=== PATIENT | female | born 1985 | race Caucasian/White ===

== ENCOUNTER → 2025-03-21 09:36 | Outpatient (REF) | payer BC, SELFPAY | LOC: WDC 09:36 | PROVIDERS: ATTENDING PHYSICIAN Obstetrics & Gynecology Gynecology; FAMILY PHYSICIAN Family Medicine | DX: N63.0 Unspecified lump in unspecified breast (principal); N63.22 Unspecified lump in the left breast, upper inner quadrant | CPT/HCPCS: 76642; 77062; 77066 ==

== ENCOUNTER 2025-05-16 07:28 | Inpatient (IN) | payer BC, SELFPAY ==
[2025-05-11 14:56] VITALS: BP 168/97
[2025-05-11 15:21] LABS: Hematocrit 38.9 % (37.0-47.0); Hemoglobin 12.9 g/dL (12.0-16.0); Mean Corp Hgb Conc. 33.2 g/dL (33.0-37.0); Mean Corpuscular Volume 83.7 fL (81.0-99.0); Nucleated Red Blood Cells % 0 %; Platelet Count 289 10^3/uL (130-400); Red Cell Dist. Width 13.2 % (11.5-14.5)
[2025-05-11 15:42] LABS: HCG, Serum Qualitative Screen Negative
[2025-05-11 15:45] LABS: ALT (SGPT) 15 U/L (0-35); AST (SGOT) 17 U/L (14-36); Albumin 3.8 g/dl (3.5-5.0); Alkaline Phosphatase 60 U/L (38-126); Blood Urea Nitrogen 15 mg/dl (7-17); Calcium 8.7 mg/dl (8.4-10.2); Carbon Dioxide 25 mmol/L (22-30); Chloride 107 mmol/L (98-107); Glucose 96 mg/dl (70-99); Potassium 4.0 mmol/L (3.5-5.1); Sodium 138 mmol/L (135-145); Total Protein 6.9 g/dl (6.3-8.2); eGFR > 60.00
[2025-05-11 18:37] VITALS: BMI 36.4
--- NOTE | 2025-05-11 19:45 | ED.GENMED ---
History of Present Illness
<Artur Cruz DO - Last Filed: 05/11/25 19:53>
General
Chief Complaint: Skin Problem
Time Seen by Provider: 05/11/25 18:02
<Milagros Hager NP - Last Filed: 05/11/25 21:49>
General
Source: patient
Exam Limitations: none
Nursing documentation reviewed up to this point in time: agreed with
History of Present Illness
History of Present Illness:
Patient to ED for eval of discoloration to left 5th toe. History of Type II DM, BLE neuropathy. States she developed a blister to left 5th toe but did not see or feel it until foot became red. She was seen elswhere and placed on Keflex QID 4 days
ago. 2 days ago she was seen at [facility] for same issue and given a dose of IV antibiotics, told to contineu Keflex. She reports blue discoloration of toe today. Came to ED for eval.
Past History
<Milagros Hager NP - Last Filed: 05/11/25 21:49>
Past History
ED Past Medical History: HTN, Hypercholesterolemia and NIDDM
Review of Systems
<Milagros Hager NP - Last Filed: 05/11/25 21:49>
Review of Systems
Allergies reviewed?: Yes
All Other Systems: ROS reviewed and negative except as documented in HPI and ROS
Constitutional: Reports no symptoms
EENT: Reports no symptoms
Respiratory: Reports no symptoms
Cardiac: Reports no symptoms
ABD/GI: Reports no symptoms
: Reports no symptoms
Musculoskeletal: Reports no symptoms
Skin: Reports other (blue discoloraton left 5th toe, swelling)
Neurological: Reports other (Neuropathy BLE)
Psychiatric: Reports no symptoms
Phy Exam
<Milagros Hager NP - Last Filed: 05/11/25 21:49>
General Physical Exam
General Presentation: well appearing and mild distress
General age: appears stated age
General Skin: warm and dry
General Habitus: normal
General Mental: alert
Cardiovascular Exam
Cardiovascular Exam: regular rate/rhythm
Pulmonary Exam
Pulmonary Exam: no respiratory distress
Musculoskeletal Exam
Musculoskeletal Exam: full ROM and other (BLE neuropathy. Left DP/PT pulses by doppler)
Skin Exam
Skin Exam: warm/dry and other (blue discoloration left 5th toe, swelling. )
Psychiatric Exam
Psychiatric Exam: normal mood/affect
Course
<Artur Cruz, DO - Last Filed: 05/11/25 19:53>
Orders/Labs/Results
Orders:
Orders
05/11/25 15:01
Test Result ONCE
05/11/25 15:13
CMP [Comprehensive Metabolic Panel] Urgent
Complete Blood Count/With Diff Urgent
HCG, Serum Qualitative Screen Urgent
05/11/25 18:19
Toes 2 Views, Left CR [CR Toe(s) Min 2 Vw Left] Urgent
Comment:
Reason For Exam: cellulitis 5th toe
05/11/25 21:01
Lactic Acid Urgent
Blood Culture Urgent
VLAD Source: Blood/Venous
Specimen Description:
Blood Culture Urgent
VLAD Source: Blood/Venous
Specimen Description:
Date Specimen was Collected: 05/11/25
Time Specimen was Collected: 21:20
05/11/25 21:32
Admit/Transfer Patient As Directed
Co-Sign Provider:
Level of Care: Observation services
Assign to:: Medical/Surgical
Physician / Group: Colette Almanza
Diagnosis: left 5th toe cellulitis and left 5th toe cyanosis
PRN Pain Medication Management As Directed
May give lesser potent ordered pain med per pt: Yes
preference::
Protocol:: Medication orders for pain may be administered in a
manner that supports deferring to patient preference
when the pt is:
- Requesting an ordered lesser potent pain medication.
Least to most potent pain medications are defined
as: acetaminophen < NSAID < tramadol < opioids
(morphine, oxycodone, hydromorphone).
- Requesting a lesser dose of the same medication IF
ORDERED.
- Requesting a less intrusive route of administration
if both routes are prescribed by the provider (PO <
IV).
05/11/25 21:34
Code Status As Directed
Resuscitation Status: Full Code
Abnormal Lab Results
05/11/25
15:13
Abs Immat Gran (auto) 0.1 H 10^3/uL
(0-0.05)
Absolute Neuts (auto) 7.6 H 10^3/uL
(1.4-6.5)
Absolute Monos (auto) 0.8 H 10^3/uL
(0.1-0.6)
05/11/25 15:13
05/11/25 15:13
Vital Signs
Initial and Last Documented VS:
Initial Vital Signs
Temp Pulse Resp BP Pulse Ox
98.2 F 89 18 168/97 98
05/11/25 14:56 05/11/25 14:56 05/11/25 14:56 05/11/25 14:56 05/11/25 14:56
Last Documented Vital Signs
Temp Pulse Resp BP Pulse Ox
98.2 F 87 20 168/97 99
05/11/25 14:56 05/11/25 21:05 05/11/25 21:05 05/11/25 14:56 05/11/25 21:01
<Milagros Hager NP - Last Filed: 05/11/25 21:49>
Orders/Labs/Results
Orders:
Orders
05/11/25 15:01
Test Result ONCE
05/11/25 15:13
CMP [Comprehensive Metabolic Panel] Urgent
Complete Blood Count/With Diff Urgent
HCG, Serum Qualitative Screen Urgent
05/11/25 18:19
Toes 2 Views, Left CR [CR Toe(s) Min 2 Vw Left] Urgent
Comment:
Reason For Exam: cellulitis 5th toe
05/11/25 21:01
Lactic Acid Urgent
Blood Culture Urgent
VLAD Source: Blood/Venous
Specimen Description:
Blood Culture Urgent
VLAD Source: Blood/Venous
Specimen Description:
Date Specimen was Collected: 05/11/25
Time Specimen was Collected: 21:20
05/11/25 21:32
Admit/Transfer Patient As Directed
Co-Sign Provider:
Level of Care: Observation services
Assign to:: Medical/Surgical
Physician / Group: Colette Almanza
Diagnosis: left 5th toe cellulitis and left 5th toe cyanosis
PRN Pain Medication Management As Directed
May give lesser potent ordered pain med per pt: Yes
preference::
Protocol:: Medication orders for pain may be administered in a
manner that supports deferring to patient preference
when the pt is:
- Requesting an ordered lesser potent pain medication.
Least to most potent pain medications are defined
as: acetaminophen < NSAID < tramadol < opioids
(morphine, oxycodone, hydromorphone).
- Requesting a lesser dose of the same medication IF
ORDERED.
- Requesting a less intrusive route of administration
if both routes are prescribed by the provider (PO <
IV).
05/11/25 21:34
Code Status As Directed
Resuscitation Status: Full Code
Abnormal Lab Results
05/11/25
15:13
Abs Immat Gran (auto) 0.1 H 10^3/uL
(0-0.05)
Absolute Neuts (auto) 7.6 H 10^3/uL
(1.4-6.5)
Absolute Monos (auto) 0.8 H 10^3/uL
(0.1-0.6)
05/11/25 15:13
05/11/25 15:13
Vital Signs
Initial and Last Documented VS:
Initial Vital Signs
Temp Pulse Resp BP Pulse Ox
98.2 F 89 18 168/97 98
05/11/25 14:56 05/11/25 14:56 05/11/25 14:56 05/11/25 14:56 05/11/25 14:56
Last Documented Vital Signs
Temp Pulse Resp BP Pulse Ox
98.2 F 87 20 168/97 99
05/11/25 14:56 05/11/25 21:05 05/11/25 21:05 05/11/25 14:56 05/11/25 21:01
<Artur Cruz DO - Last Filed: 05/11/25 19:53>
*Pulse Oximetry
SaO2: 100
Oxygen Mode of Delivery: Room air
<Milagros Hager NP - Last Filed: 05/11/25 21:49>
*Radiology
Radiology exam reviewed: radiology read reviewed
*Pulse Oximetry
Patient hypoxic: no
*Critical Care Note
Total Time (30-74mins, 75-104mins- exclusive of procedures): Not Applicable
<Milagros Hager NP - Last Filed: 05/11/25 21:49>
Update Note
Update Note:
Patient to ED with discoloration to left 5th toe concerning for arterial compromise. Dr. Figueroa consulted via tiger text. Requests admission, IV antibiotics,, noninvasive arterial studies in AM. Discussed plan with patient. WIll admit to
hospitalist service.
ED Attending Note
<Artur Cruz, DO - Last Filed: 05/11/25 19:53>
ED Attending Note
Patient seen and examined by attending physician: Yes
I performed the substantive portion of visit, reviewed & personally made and approve the management plan that is documented in note by myself or PAULA.: Yes
ED Attending Note:
I have seen and evaluated the patient with a [id number] encounter. I have spoken to the advance practicer provider and involved in the medical history, the physical exam, medical decision making.
Evaluation and management service: agree unless noted differently below.
Results interpretation: agree unless noted differently below.
Focused HPI: 39-year-old female presenting for evaluation of discolored left pinky toe. She was recently admitted for IV antibiotics given a concern for diabetic ulcer and cellulitis. Since being on the antibiotics, the swelling and erythema have
improved drastically. Patient does acknowledge that she has poor circulation in both feet and poor sensation in both feet but has not been evaluated by a fire protection equipment technician or vascular surgeon
Physical exam: Thready pulses in both DP's. Cap refill approximately 3 seconds for both feet. Left pinky toe has purpleish discoloration to the distal aspect but is nontender. No crepitus. No surrounding cellulitis
Medical Decision Making: Given the discoloration, will touch base with vascular surgeon. Patient acknowledges that she needs to see a fire protection equipment technician. We discussed the possibilities of osteomyelitis versus micro clot versus dry gangrene versus a simple
bruise.
-
Portions of this chart may have been created with voice recognition software.� Occasional wrong word or��sound alike� substitutions may have occurred due to the inherent limitations of voice recognition software.
Discharge Plan
Departure
Patient Disposition: Admit
Date of Disposition: 05/11/25
Time of Disposition: 20:39
Presentation/result/management discussed w/ accepting MD/DO: Hospitalist
Patient with high blood pressure during this ER visit?: No
Condition: Fair
Covid-19: Not Applicable
Discharge Problem:
Toe cyanosis, Cellulitis of fifth toe
Prescriptions:
No Action
atorvastatin 40 mg Tablet
40 mg PO DAILY
ascorbic acid (vitamin C) [Vitamin C] 1,000 mg Tablet
1,000 mg PO DAILY
metoprolol succinate 50 mg Tablet Extended Release 24 Hr
50 mg PO BID
cephalexin 500 mg capsule
500 mg PO QID
Patient Comments:
05/11/2025, filled on 05/09/2025 and instructed to take 1 capsule QID for 7 days.
metformin 1,000 mg Tablet
1,000 mg PO BID
Ex-Lax 90 mg Tablet,Chewable
90 mg PO ONCE PRN (Reason: constipation)
mupirocin 2 % ointment
1 applic TOPICAL BID
losartan 100 mg tablet
100 mg PO DAILY
bupropion HCl 150 mg Tablet Extended Release 24 Hr
150 mg PO DAILY
Jardiance 25 mg Tablet
25 mg PO DAILY
Bariatric Multivitamins 45 mg iron- 800 mcg-120 mcg Capsule
1 cap PO DAILY
Mounjaro 7.5 mg/0.5 mL pen injector
7.5 mg SC MO
Referrals:
Rajan Epstein DO [Family Provider, Family Practice]
Interventions
Interventions:
*Risk Screen - Suicide Last Done: 05/11/25 14:56
*General Assessment Last Done: 05/11/25 14:56
*Neglect/Abuse Screening Last Done: 05/11/25 18:38
*ED- Fall Risk Assessment Last Done: 05/11/25 18:38
*ED COVID-19 Vaccine History Last Done: 05/11/25 18:38
ED-Skin Assessment Last Done: 05/11/25 18:38
Discharge Date and Time
Print Language: VIETNAMESE
--- NOTE | 2025-05-11 20:49 | HPS.HSE ---
Family Physician
-
Family Physician: Rajan Epstein
Chief Complaint
-
discoloration of left 5th toe
History of Present Illness
Patient is a 39-year-old female with past medical history significant for hypertension, hyperlipidemia, DM II and depression/anxiety who presented to [facility] ED for evaluation of discoloration of left 5th toe. Patient reports a blister started on
outside of toe approximately 2 weeks ago, it appeared to be healing when Friday she noticed erythema and edema to toe that traveled up foot to ankle. Patient reports seeing primary doctor on Friday who started her on oral antibiotics, by Friday
evening the erythema traveled nearly to knee and she went to ED ([facility] [place]) for evaluation. They administered 1 dose of IV antibiotics and discharged her home to continue Keflex QID. Patient notes she observed a dark discoloration on the
underside of her toe today and came for further evaluation. Denies any fever, chills, cough, shortness of breath, chest pain, nausea, vomting or change in bowel or bladder.
Medical History
Past Medical History
Past Medical History: Reports Other
Additional Past Medical History:
Depression
Diabetes mellitus, type 2
Neuropathy
Hypertension
Hypercholesterolemia
Past Surgical History: Reports Other
Additional Past Surgical History:
Gastric Sleeve Surgery- 10/2023
wisdom teeth extraction
Social History
Tobacco: Non-smoker
Alcohol: Occasional (rare)
Drug: None
Living: With Roomate
Employment: Employed
Family History
Family History: Adopted
Allergies / Home Medications
Allergies reflects when Allergies were last updated in [employer].
Home Medications with original date entered in [employer]
Allergy/Medication List:
Allergies
Allergy/AdvReac Type Severity Reaction Status Date / Time
lisinopril Allergy cough Verified 05/11/25 14:57
Home Medications
ascorbic acid (vitamin C) 1,000 mg tablet (Vitamin C) 1,000 mg PO DAILY 05/11/25
atorvastatin 40 mg tablet 40 mg PO DAILY 05/11/25
bupropion HCl 150 mg 24 hr tablet, extended release 150 mg PO DAILY 05/11/25
cephalexin 500 mg capsule 500 mg PO QID 05/11/25
empagliflozin 25 mg tablet (Jardiance) 25 mg PO DAILY 05/11/25
losartan 100 mg tablet 100 mg PO DAILY 05/11/25
metformin 1,000 mg tablet 1,000 mg PO BID 05/11/25
metoprolol succinate 50 mg tablet,extended release 24 hr 50 mg PO BID 05/11/25
[id number]-[id number]-qjla 45 mg-folic acid 800 mcg-vit K 120 mcg capsule (Bariatric Multivitamins) 1 cap PO DAILY 05/11/25
mupirocin 2 % topical ointment 1 applic topical BID apply to L pinky toe 05/11/25
phenolphthalein, yellow 90 mg chewable tablet 90 mg PO ONCE PRN constipation 05/11/25
tirzepatide 7.5 mg/0.5 mL subcutaneous pen injector (Mounjaro) 7.5 mg SC MO 05/11/25
Review of Systems
-
History Source: Patient
Constitutional: Reports No Symptoms
EENT: Reports No Symptoms
Respiratory: Reports No Symptoms
Cardiac: Reports No Symptoms
Abdomen/GI: Reports No Symptoms
: Reports No Symptoms
Musculoskeletal: Reports Other (left 5th toe dark decolorization )
Skin: Reports No Symptoms
Neurological: Reports No Symptoms
Endocrine: Reports No Symptoms
Hematologic/Lymphatic: Reports No Symptoms
Psych: Reports No Symptoms
Physical Exam
Vital Signs
Vital Signs
Temp Pulse Resp BP Pulse Ox
98.2 F 88 16 168/97 100
05/11/25 14:56 05/11/25 18:37 05/11/25 18:37 05/11/25 14:56 05/11/25 19:45
Physical Exam
General: Well Developed, Well Nourished, No Apparent Distress, Comfortable and Conversant
HEENT: NormoCephalic, Moist mucous membranes and Atraumatic
Respiratory: Clear and Non Labored Respirations
Cardiac: S1/S2 and Regular Rhythm
GI: Soft, Non Tender, Non Distended and Normal Bowel Sounds
Rectal: Deferred by Provider
Musculoskeletal: No Clubbing, No Cyanosis, Edema, Left Lower Extremity (edema noted to left 5th digit and left foot ) and Other (poor palpable pedal pulses )
Skin: Warm, IV/Catheter Site and Other (left 5th digit wound appears to be healing )
Neuro: Awake, AO x 3 and Nonfocal/grossly intact
Psych: Calm and Intact Judgment/Insight
Laboratory Results
-
05/11/25 15:13
05/11/25 15:13
Laboratory Results
Total Bilirubin 0.9 mg/dl (0.2-1.3) 05/11/25 15:13
AST 17 U/L (14-36) 05/11/25 15:13
ALT 15 U/L (0-35) 05/11/25 15:13
Alkaline Phosphatase 60 U/L (38-126) 05/11/25 15:13
Data Reviewed
-
Diagnostic Radiology: Report Reviewed by me (Lt foot 5th digit x-ray: Soft tissue swelling about the fifth digit may reflect cellulitis. No convincing radiographic evidence for active osteomyelitis. MRI would be of greater sensitivity. No acute
fracture or dislocation. Visualized joints are intact. Scattered vascular calcifications.)
Lab Data: Labs Reviewed by me
Impression/Plan
-
IMPRESSION/PLAN:
#left 5th digit cyanosis
#left 5th digit cellulitis
Lt foot 5th digit x-ray: Soft tissue swelling about the fifth digit may reflect cellulitis. No convincing radiographic evidence for active osteomyelitis. MRI would be of greater sensitivity.
No acute fracture or dislocation. Visualized joints are intact. Scattered vascular calcifications.
- Admit to telemetry
- Consult Vascular
- non-invasive arterial studies in AM
- continue antibiotics, change Keflex to IV cefazolin
#hypertension
- continue losartan and metoprolol
#hyperlipidemia
- continue atorvastatin
#DM II
- AccuCheck AC & HS
- SSI
- hold Jardiance and metformin
- continue Mounjaro out patient
#depression/anxiety
- continue bupropion
Code status: full code
DVT prophylaxis: Lovenox sq
--- NOTE | 2025-05-11 20:49 | W.PN.UPDATE ---
Update Note
Progress Note Update
This is an addendum to H&P written by RECLAMATION ENGINEER Marla Ley
I saw and examined the patient.
The RECLAMATION ENGINEER's note was reviewed and I agree with the note.
Comment:
Ms. Triny Mcclure is a 39 yo woman with hx DM II, bilateral lower extremity neuropathy, recent treatment left 5th toe cellulitis started on Keflex, presents to the ER with blue discoloration of toe today.
Triage VS: T 98.2, P 89, RR 18, BP 168/97, SpO2 98%
On exam patient is awake, alert, in no distress. Cellulitis resolving from marked borders, no significant redness except at 5th digit where plantar aspect has darkened blue/purple appearance.
LABS: WBC 10.8, HG 12.9, PLT 239, Na 138, K+ 4.0, Cl 107, CO2 25, BUN 15, Cr 0.9, Glucose 96, CA 8.7, T. Bili 0.9, AST 17, ALT 15, Alk Phos 60, HCG negative
Toe X-Ray
IMPRESSION:
Soft tissue swelling about the fifth digit may reflect cellulitis. No convincing radiographic evidence for active osteomyelitis. MRI would be of greater sensitivity.
No acute fracture or dislocation. Visualized joints are intact. Scattered vascular calcifications.
Left fifth toe/LLE cellulitis with evidence of cyanosis 5th digit
-admit to med/surg
-Vascular surgery aware of admission
-Arterial US tomorrow
-IV Cefazolin while in-house (infection was improving on Oral Keflex at home)
DM II
-hold RN ANESTHESIOLOGY Metformin
Essential HTN
-RN ANESTHESIOLOGY Losartan, Metoprolol
HLD - RN ANESTHESIOLOGY Atorvastatin
Bilateral Lower extremity neuropathy
Obesity due to excess calories
DVT PPx
FULL CODE
[2025-05-11 22:00] VITALS: BP 146/93
[2025-05-11 22:54] LABS: Glucose - Point of Care 117 mg/dl (70-99)
[2025-05-11] MEDS: ANCEF 5 IV (23:13)
[2025-05-11] MEDS: FLUSH (NSS) 1 FLUSH IV (23:14)
[2025-05-11 23:17] VITALS: BP 134/94
[2025-05-12 05:58] LABS: Blood Urea Nitrogen 17 mg/dl (7-17); Calcium 8.5 mg/dl (8.4-10.2); Carbon Dioxide 23 mmol/L (22-30); Chloride 108 mmol/L (98-107); Estimated Creatinine Clearance 94 ml/min; Glucose 85 mg/dl (70-99); Potassium 3.9 mmol/L (3.5-5.1); Sodium 139 mmol/L (135-145); eGFR > 60.00
[2025-05-12 06:00] LABS: Hematocrit 37.4 % (37.0-47.0); Hemoglobin 12.7 g/dL (12.0-16.0); Mean Corp Hgb Conc. 34.0 g/dL (33.0-37.0); Mean Corpuscular Volume 82.6 fL (81.0-99.0); Platelet Count 291 10^3/uL (130-400); Red Cell Dist. Width 13.3 % (11.5-14.5)
[2025-05-12 07:20] VITALS: BP 137/89
[2025-05-12 08:29] LABS: Glucose - Point of Care 87 mg/dl (70-99)
[2025-05-12] MEDS: WELLBUTRIN XL (24 hour extended release) 150 MG PO (08:30)
[2025-05-12] MEDS: LIPITOR 40 MG PO (08:30)
[2025-05-12] MEDS: COZAAR 100 MG PO (08:30)
[2025-05-12] MEDS: TOPROL XL 50 MG PO ×2 (08:30→20:09)
[2025-05-12 08:50] LABS: Glycohemoglobin (HgbA1c) 5.8 % (4.0-5.6)
[2025-05-12] MEDS: ANCEF 5 IV ×3 (08:54→23:53)
[2025-05-12] MEDS: VITAMIN C 1000 MG PO (08:54)
[2025-05-12] MEDS: THERAGRAN 1 TABLET PO (08:55)
--- NOTE | 2025-05-12 09:13 | CON.VAS ---
Addendum entered and electronically signed by Matheus Gauthier III, MD 05/12/25 16:25:
This patient was seen and examined in collaboration with DONNA Barboza. I agree with the history and physical exam as well as the assessment and plan. I have the following additions:
39-year-old female with years of poorly controlled diabetes, now better managed with recent hemoglobin A1c around 5 according to the patient
Presents with cyanotic discoloration of the left fifth toe
Recent infection of the left lower extremity from a left fifth toe blister
She provides history of poor wound healing from blisters on her feet in the past
Has chronic neuropathy of her left foot and does not experience pain in the toe
On physical exam she has an easily palpable left popliteal artery pulse but nonpalpable pedal pulses
Her left foot is warm
Cyanotic discoloration of the left fifth toe
I personally reviewed her lower extremity arterial studies. Her SVETLANA is noncompressible on the left. TBI is within normal limits. Digital waveforms are blunted.
My concern is that she has tibial artery and small vessel disease related to her chronic poorly controlled diabetes. I think she would benefit from a lower extremity arteriogram and possible endovascular intervention. I think it would be ideal to
remain proactive regarding evaluation and management of possible arterial occlusive disease given the appearance of her toe. The technical aspects of this procedure were discussed with her in detail. The benefits and rationale for this approach
were discussed with her in detail. Operative risks were discussed with her in detail including but not limited to arterial access site injury, bleeding, contrast nephropathy, distal embolization and the inability to successfully complete
endovascular intervention. She expressed a clear understanding of our conversation and agrees to proceed with arteriogram. Unclear on timing of procedure. Will pala back.
Signed:
Matheus Gauthier III, MD
Vascular Surgery
[facility]
Original Note:
Consultation
Consultation Request
Date/Time Consultation Performed: 05/12/25 830am
Performing Provider: Abrahan
Reason for Consultation: PAD eval
Medical History
-
Chief Complaint: Left 5th toe discoloration
History of Present Illness:
39-year-old female with past medical history significant for type 2 diabetes, hypertension, hyperlipidemia, anxiety/depression who presented to the emergency room last evening for discoloration of the left fifth toe. Patient admits to noticing a
blister on the toe about 2 weeks ago. She states this appeared to be healing until Friday when she noticed redness from the toe to the ankle. Patient saw her PCP who started her on oral antibiotics. On Friday evening patient presented to [facility]
[place] ED for evaluation of increasing redness. She was given 1 dose of IV antibiotics and was discharged. Yesterday the patient noted the toe having a dark discoloration which led to this admission.
Vascular consult for PAD evaluation.
Patient seen at bedside in the emergency room. Patient admits to history of 'circulation issues in her lower extremities.' Patient states her feet typically feel cool to her. 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
her right foot. She admits to prolonged healing time for blisters to her feet for quite a few years. Denies any interventions to her lower extremities (stents/balloons). Denies numbness or tingling to bilateral lower extremities. Denies cramping
in the calfs with walking. States she can walk what ever distance she wants without issue.
Left fifth toe is slightly erythematous, dry scab noted to the lateral part of the toe, no other open wounds, no drainage noted. Patient states coloring is better today. There is no erythema on the remainder of the foot ankle or leg. Patient
states the toe appeared purple yesterday and that has mostly resolved.
Past Medical History
Past Medical History: HTN, Hypercholesterolemia, NIDDM, Psychiatric (Depression) and Other (Neuropathy)
Past Surgical History: Bowel Resection (Gastric sleeve 10/2023, wisdom teeth extraction)
Social History
Tobacco: Non-Smoker
Alcohol: Occasional
Drug: None
Living: With Roomate
Employment: Employed
Family History
Family History: Adopted
Allergies / Home Medications
Allergy/AdvReac Type Severity Reaction Status Date / Time
lisinopril Allergy cough Verified 05/11/25 14:57
�Medication �Instructions �Recorded �Confirmed �Type
ascorbic acid (vitamin C) 1,000 mg 1,000 mg PO DAILY 05/11/25 05/11/25 History
tablet (Vitamin C)
atorvastatin 40 mg tablet 40 mg PO DAILY 05/11/25 05/11/25 History
bupropion HCl 150 mg 24 hr tablet, 150 mg PO DAILY 05/11/25 05/11/25 History
extended release
cephalexin 500 mg capsule 500 mg PO QID 05/11/25 05/11/25 History
empagliflozin 25 mg tablet 25 mg PO DAILY 05/11/25 05/11/25 History
(Jardiance)
losartan 100 mg tablet 100 mg PO DAILY 05/11/25 05/11/25 History
metformin 1,000 mg tablet 1,000 mg PO BID 05/11/25 05/11/25 History
metoprolol succinate 50 mg 50 mg PO BID 05/11/25 05/11/25 History
tablet,extended release 24 hr
qoamtnjd-ibgqdkdm-hsgb 45 mg-folic 1 cap PO DAILY 05/11/25 05/11/25 History
acid 800 mcg-vit K 120 mcg capsule
(Bariatric Multivitamins)
mupirocin 2 % topical ointment 1 applic topical BID apply to L 05/11/25 05/11/25 History
pinky toe
phenolphthalein, yellow 90 mg 90 mg PO DAILYPRN PRN constipation 05/11/25 05/12/25 History
chewable tablet
tirzepatide 7.5 mg/0.5 mL 7.5 mg SC MO 05/11/25 05/11/25 History
subcutaneous pen injector
(Mounjaro)
Review of Systems
-
History Source: Patient
All other systems: Negative unless noted
Constitutional: Reports No Symptoms
EENT: Reports No Symptoms
Respiratory: Reports No Symptoms
Cardiac: Reports No Symptoms
Vascular: Denies Leg Pain / Claudication
Abdomen/GI: Reports No Symptoms
: Reports No Symptoms
Musculoskeletal: Reports Edema
Skin: Reports Other (Discolored left fifth toe, redness from toe to knee-resolved)
Neurological: Reports No Symptoms
Physical Exam
Vital Signs
Temp Pulse Resp BP Pulse Ox
97.7 F 80 14 137/89 98
05/12/25 07:20 05/12/25 08:30 05/12/25 07:20 05/12/25 08:30 05/12/25 07:20
Lab Results
05/12/25 05:18
05/12/25 05:18
Physical Exam
General: No Apparent Distress
HEENT: Normocephalic and Atraumatic
Respiratory: Non Labored Respirations
Cardiac: Negative JVD
GI: Soft and Non Tender
Musculoskeletal: No Clubbing, No Cyanosis and Edema (Scant edema left foot)
Skin: Warm and Other (Left fifth toe with mild erythema, small dry scab to lateral fifth toe, no open wounds, no drainage)
Neuro: Awake, Alert and Oriented
Psych: Calm
Pulses: Bilateral Femoral: +2, Left Popliteal: +1, Right Popliteal: +2, Left Dorsalis Pedis: +1, Right Dorsalis Pedis: Doppler (nonpalp), Left Posterior Tibial: Doppler (nonpalp) and Right Posterior Tibial: Doppler (nonpalp)
Assessment / Plan
-
39-year-old female here with left fifth toe wound/discoloration
Plan:
LE arterial ultrasound pending
Will follow-up with patient when scan complete
Recommend local wound care
Data Reviewed
-
Labs: Labs Reviewed by me
--- NOTE | 2025-05-12 10:54 | CM ---
Patient seen at bedside in ED. Patient states that she lives with her in a private home, 2 stories. Patient PCP is Dr. Epstein and he uses the [facility] in [place] [facility]. Patient is here as OBS and CM provided form and signed form
placed on chart. CM will continue to follow for discharge planning needs.
Plan; home with no needs anticipated
[2025-05-12 11:32] VITALS: BP 126/80
--- NOTE | 2025-05-12 11:36 | W.PN.HOSP.TC ---
Today's Communication/Plan
-
Follow-up lower extremity arterial ultrasound, SVETLANA
ESR, CRP
Continue antibiotics
Assessment / Plan
Assessment / Plan
Gen-AAOx3, NAD
HEENT-NC, AT, anicteric, clear oral mm
Neck-supple
CV-reg, no M, +S1/S2
Lungs-clear B/L
Abd-soft, NT, ND
Ext-no edema
Musculoskeletal-no cyanosis, clubbing
Skin-warm and dry, left fifth digit bruising, open wound without drainage
Neuro-grossly non-focal
Psych-calm, cooperative
Acute left fifth toe skin and soft tissue infection -pulses intact in the left foot, doubt arterial insufficiency. Arterial Doppler ultrasound performed this morning, report pending. Vascular surgery following. Continue IV antibiotics.
Check ESR, CRP. If inflammatory markers elevated, will consider advanced imaging with MRI.
Patient states that the bruising has improved compared to yesterday.
Wound originally started 2 weeks ago as a blister on the left fifth toe that she attributes to poorly fitting slippers that she wore while on vacation. Also did some hiking. The blister improved and then subsequently worsened 4 days ago with
findings of left leg cellulitis. Saw her primary care physician and started on oral cephalexin 3 days ago, along with topical mupirocin. Had purulent drainage from the left fifth toe 2 days ago and went to the emergency room at [facility]. Administered 1 dose of IV antibiotics and discharged.
She came into our emergency room 05/11 evening for discoloration of the left fifth toe. She denies any pain, attributed to her longstanding neuropathy.
No signs or symptoms of sepsis.
Foot x-ray negative for fracture or dislocation. No radiographic evidence for active osteomyelitis.
Chronic diabetic peripheral neuropathy
DM2 without hyperglycemia -patient states she was originally diagnosed with diabetes 19 years ago, poorly controlled for a long time. Initially required insulin but subsequently lost weight and is now managed with oral medications alone.
At home she is on metformin, empagliflozin, tirzepatide. Hemoglobin A1c 5.8%.
Hyperlipidemia -atorvastatin.
Essential hypertension -metoprolol, losartan.
Obesity due to excess calories -underwent gastric sleeve October 2023.
Full code
Anticipated Discharge: 24 - 48 hours
Subjective/Interval History
-
Date of Service: May 12, 2025
Patient seen and examined. No complaints.
Objective Data
-
Labs:
Laboratory Results
05/12/25
05:18
WBC 9.8
Hgb 12.7
Hct 37.4
Plt Count 291
Sodium 139
Potassium 3.9
Chloride 108 H
Carbon Dioxide 23
BUN 17
Creatinine 0.9
Glucose 85
Calcium 8.5
Vital Signs:
Vital Signs
Temp Pulse Resp BP Pulse Ox
97.8 F 80 14 126/80 98
05/12/25 11:32 05/12/25 11:32 05/12/25 11:32 05/12/25 11:32 05/12/25 11:32
Review of Systems
-
History Source: Patient
All other systems: Reviewed and negative
[2025-05-12 12:50] LABS: Glucose - Point of Care 137 mg/dl (70-99)
[2025-05-12 13:50] LABS: C-Reactive Protein 44.10 mg/L (0.0-10.00)
[2025-05-12 15:00] VITALS: BP 147/95
[2025-05-12 16:27] LABS: Glucose - Point of Care 90 mg/dl (70-99)
[2025-05-12] MEDS: LOVENOX 40 MG SC (17:51)
[2025-05-12 19:14] VITALS: BMI 35.1
[2025-05-12 21:40] LABS: Glucose - Point of Care 105 mg/dl (70-99)
[2025-05-12 23:03] VITALS: BP 140/85
[2025-05-13 07:21] LABS: Glucose - Point of Care 91 mg/dl (70-99)
[2025-05-13 07:30] VITALS: BP 131/92
[2025-05-13] MEDS: ANCEF 5 IV ×2 (08:37→16:09)
[2025-05-13] MEDS: THERAGRAN 1 TABLET PO (08:38)
[2025-05-13] MEDS: COZAAR 100 MG PO (08:38)
[2025-05-13] MEDS: FLUSH (NSS) 1 FLUSH IV ×2 (08:38→16:09)
[2025-05-13] MEDS: WELLBUTRIN XL (24 hour extended release) 150 MG PO (08:38)
[2025-05-13] MEDS: LIPITOR 40 MG PO (08:38)
[2025-05-13] MEDS: VITAMIN C 1000 MG PO (08:38)
[2025-05-13] MEDS: TOPROL XL 50 MG PO ×2 (08:38→20:40)
--- NOTE | 2025-05-13 09:07 | W.PN.HOSP.TC ---
Today's Communication/Plan
-
Podiatry consult
MRI
Assessment / Plan
Assessment / Plan
Gen-AAOx3, NAD
HEENT-NC, AT, anicteric, clear oral mm
Neck-supple
CV-reg, no M, +S1/S2
Lungs-clear B/L
Abd-soft, NT, ND
Ext-no edema
Musculoskeletal-no cyanosis, clubbing
Skin-warm and dry, left fifth digit bruising, open wound without drainage
Neuro-grossly non-focal
Psych-calm, cooperative
Acute left fifth toe skin and soft tissue infection -clinically improving, less erythema today. Continue IV antibiotics.
Check ESR, CRP. If inflammatory markers elevated, will consider advanced imaging with MRI.
Patient states that the bruising has improved compared to yesterday.
Wound originally started 2 weeks ago as a blister on the left fifth toe that she attributes to poorly fitting slippers that she wore while on vacation. Also did some hiking. The blister improved and then subsequently worsened 4 days ago with
findings of left leg cellulitis. Saw her primary care physician and started on oral cephalexin 3 days ago, along with topical mupirocin. Had purulent drainage from the left fifth toe 2 days ago and went to the emergency room at [facility]. Administered 1 dose of IV antibiotics and discharged.
She came into our emergency room 05/11 evening for discoloration of the left fifth toe. She denies any pain, attributed to her longstanding neuropathy.
No signs or symptoms of sepsis.
Foot x-ray negative for fracture or dislocation. No radiographic evidence for active osteomyelitis. Await MRI. Podiatry consulted.
Extremity arterial study, SVETLANA showed unobtainable SVETLANA left leg. TBI within normal limits. Multifocal flow within the common femoral through popliteal arteries, multiphasic pedal flow. Vascular surgery recommends arteriogram, to be done next week
on Friday.
Chronic diabetic peripheral neuropathy
DM2 without hyperglycemia -patient states she was originally diagnosed with diabetes 19 years ago, poorly controlled for a long time. Initially required insulin but subsequently lost weight and is now managed with oral medications alone.
At home she is on metformin, empagliflozin, tirzepatide. Hemoglobin A1c 5.8%.
Glucoses controlled in the hospital.
Hyperlipidemia -atorvastatin.
Essential hypertension -metoprolol, losartan.
Obesity due to excess calories -underwent gastric sleeve October 2023.
Full code
Anticipated Discharge: Within 24 hours
Subjective/Interval History
-
Date of Service: May 13, 2025
Patient seen and examined. No complaints.
Objective Data
-
Vital Signs:
Vital Signs
Temp Pulse Resp BP Pulse Ox
98.8 F 63 16 131/92 100
05/13/25 07:30 05/13/25 08:38 05/13/25 07:30 05/13/25 08:38 05/13/25 08:34
I&O
05/12/25 05/13/25 05/14/25
06:59 06:59 06:59
Intake Total 960 / 960
Balance 960 / 960
Review of Systems
-
History Source: Patient
All other systems: Reviewed and negative
--- NOTE | 2025-05-13 10:35 | W.PN.UPDATE ---
Update Note
Progress Note Update
Reviewed with patient that opening for angio within our schedule will be this upcoming 05/17/2025, explained since wound on left fifth digit is dry with no evidence of malodor or drainage and since she is afebrile or with any other
complaints that we can allow her to do this in the outpatient setting. She is agreeable to this plan, plan also reviewed with hospitalist via [place] text. We will arrange to have our office materials scheduler call her with her preop instructions and arrival
time for Friday. We will sign off please call with questions or concerns.
--- NOTE | 2025-05-13 13:06 | CON.MD ---
Consultation - Medical
-
Consult for cellulitis left 5th toe. 39 year old female admitted with increased redness and discoloration left 5th toe. Approximately 2 weeks ago she noticed a blister on her left 5th toe which may have been caused by poor shoe gear. She saw her
primary on 05/09 when redness developed and was prescribed cephalexin. Later that day, redness began to develop in the foot and lower leg and she was seen in the [facility] ED where was was given one dose of IV antibiotics and was told to
continue course of oral antibiotics. She then noticed dark discoloration develop on the bottom surface of the toe and presented to ED.
PMH includes diabetes mellitus with peripheral neuropathy, HTN, hypercholesterolemia, anxiety and depression.
Patient is afebrile with WBC 10.8 on admission. Hgb A1c 5.8%. Radiographs show no cortical changes to indicate osteomyelitis. Arterial ultrasound results: Right LE multiphasic flow to the DP and PT artery with SVETLANA 1.27 and TBI 1.21. No focal
stenosis noted. Left SVETLANA unobtainable due to poor vessel compressibility TBI 0.92. Multiphasic pedal flow but dampened waveforms within the 5th toe. Addendum by Dr Gauthier noted suspicion of tibial artery and small vessel disease due to diabetes
and suggested arteriogram outpatient next week.
Impression/Plan
Left 5th toe cellulitis with cyanotic changes
Started as a blister on the toe and progressed to cellulitis
Small vessel disease suspected. Scheduled for outpatient Angiogram next week.
Radiographs negative for osteomyelitis
MRI pending
Diabetes with peripheral neuropathy
Anxiety/depression
Patient was unavailable for exam this morning as she was having an arterial ultrasound and is currently at MRI. Based on note by Dr. Gauthier if toe is stable and dry, she can be discharged for outpatient arteriogram next week. Even if MRI indicates
presence of osteomyelitis, surgical intervention will be delayed until after vascular assessment.
[2025-05-13 13:59] LABS: Glucose - Point of Care 104 mg/dl (70-99)
[2025-05-13 15:55] VITALS: BP 136/86
--- NOTE | 2025-05-13 16:27 | PTCARENOTE ---
Pt AAO x3, JONES well, ambulatory in room/to BR. VSS. On room air- pulse ox 100%. Abd obese, soft, reji regular diet. Voids in BR without difficulty. Lt 5th toe dusky/ecchymotic with dry skin/scabbing. 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 Resting in bed
at present, no c/o. Will continue to monitor.
[2025-05-13 16:34] LABS: Glucose - Point of Care 97 mg/dl (70-99)
[2025-05-13] MEDS: LOVENOX 40 MG SC (17:53)
[2025-05-13 22:11] LABS: Glucose - Point of Care 98 mg/dl (70-99)
[2025-05-13 23:07] VITALS: BP 143/89
[2025-05-14] MEDS: ANCEF 5 IV ×4 (00:16→23:49)
[2025-05-14 07:46] VITALS: BP 124/89
[2025-05-14] MEDS: WELLBUTRIN XL (24 hour extended release) 150 MG PO (07:55)
[2025-05-14] MEDS: VITAMIN C 1000 MG PO (07:55)
[2025-05-14] MEDS: LIPITOR 40 MG PO (07:55)
[2025-05-14] MEDS: THERAGRAN 1 TABLET PO (07:55)
[2025-05-14] MEDS: TOPROL XL 50 MG PO ×2 (07:55→21:38)
[2025-05-14] MEDS: COZAAR 100 MG PO (07:55)
[2025-05-14 08:16] LABS: Glucose - Point of Care 90 mg/dl (70-99)
--- NOTE | 2025-05-14 10:47 | W.PN.HOSP.TC ---
Today's Communication/Plan
-
Await Podiatry and ID eval given MRI
Assessment / Plan
Assessment / Plan
39-year-old with left toe cellulitis.'Wound originally started 2 weeks ago as a blister on the left fifth toe that she attributes to poorly fitting slippers that she wore while on vacation. Also did some hiking. The blister improved and then
subsequently worsened 4 days ago with findings of left leg cellulitis. Saw her primary care physician and started on oral cephalexin 3 days ago, along with topical mupirocin. Had purulent drainage from the left fifth toe 2 days ago and went to the
emergency room at [facility]. Administered 1 dose of IV antibiotics and discharged.She came into our emergency room 05/11 evening for discoloration of the left fifth toe. She denies any pain, attributed to her longstanding
neuropathy.
No signs or symptoms of sepsis.'
MRI 05/13/2025-large amount of enhancing bone marrow signal abnormality throughout the proximal phalanx of the fifth toe moderate patchy bone marrow signal abnormality in the head of the fifth metatarsal and mild collapse of the distal articular
surface. Diagnostic possibilities acute osteonecrosis and bone infarction, due to osteomyelitis.
Osteonecrosis of the second metatarsal head and acute subchondral insufficiency fracture of the right diagnosis
Bone marrow edema adjacent to the navicular cuneiform joint suggesting arthrosis
Moderate diffuse edema throughout the dorsal subcutaneous fat
SVETLANA right 1.27 TBI 1.21
SVETLANA left-SVETLANA unobtainable. TBI 0.92 digital waveforms appear dampened within the fifth toe
CVS: S1-S2 normal
Chest: CTA B/L
Abdomen: Soft, NT / Bowel sounds present
Extremities: left 5 th toe , Cyanotic, Plantar aspect with small blister.
# Left fifth toe cellulitis with cyanotic changes
Started as a blister and progressed to cellulitis
Infectious disease consultation
Likely has small vessel disease
Await Podiatry eval today given MRI findings
Vascular planning for angiogram on Friday
# Diabetes with peripheral neuropathy hemoglobin A1c-5.8
patient states she was originally diagnosed with diabetes 19-20 years ago, poorly controlled for a long time as she said she was in denial . Initially required insulin but subsequently lost weight and is now managed with oral medications alone.
On Jardiance 25 mg, metformin 1000 mg twice daily, Mounjaro 7.5 mg on Mondays as outpatient
Hold Jardiance in case needs any OR procedures and NPO
# Hyperlipidemia-continue atorvastatin
# Hypertension-continue metoprolol 50 mg twice daily, losartan 100 mg daily
# Anxiety and depression-continue Wellbutrin
# Obesity with a BMI of 35-on Mounjaro. History of gastric sleeve procedure
# DVT prophylaxis-continue Lovenox
# Full code
Part of this note was created using voice recognition system. Occasional wrong word or��sound alike� substitutions may have inadvertently occurred due to the inherent limitations of voice recognition software. If noted kindly bring it to my
attention for correction.
Anticipated Discharge: > 48 hours
Subjective/Interval History
-
Date of Service: May 14, 2025
Objective Data
-
Vital Signs:
Vital Signs
Temp Pulse Resp BP Pulse Ox
97.8 F 83 18 124/89 100
05/14/25 07:46 05/14/25 07:46 05/14/25 07:46 05/14/25 07:46 05/14/25 07:46
I&O
05/13/25 05/14/25 05/15/25
06:59 06:59 06:59
Intake Total 960 / 960 660 / 660
Balance 960 / 960 660 / 660
--- NOTE | 2025-05-14 12:02 | W.PN.POD ---
Today's Communication
Today's Communication
Patient stable and will follow up after Angiogram Friday
Assessment / Plan
-
Assessment/Plan
1. Left 5th toe wound with cellulitis
-Began as a blister which patient cared for herself until she noted redness and swelling.
-Radiographs unremarkable
-MRI shows bone marrow abnormality throughout the 5th proximal phalanx with patchy bone marrow signal abnormality in the head of the 5th metatarsal. findings may be due to acute osteomyelitis or acute osteonecrosis. Osteonecrosis noted 2nd
metatarsal head with bone marrow edema at the naviculocuneiform joint and diffuse edema throughout the dorsal subcutaneous fat.
-Arterial ultrasound significant as Left SVETLANA unobtainable due to poor vessel compressibility. Addendum by Dr. Gauthier noted suspicion of tibial artery and small vessel disease. Angiogram scheduled Friday
-As cellulitis has receded and toe eschar is dry with no bleeding on light debridement, no surgical intervention will be planned until after upcoming angiogram. Surgical debridement will be needed eventually as MRI findings in the 5th toe are
likely due to osteomyelitis, but achieving optimal perfusion before amputation is preferable. Agree with vascular that this can be done on outpatient basis as long as she remains on antibiotic therapy. Discussed with patient to keep the area clean
and dry with light dressing and surgical shoe dispensed. Will follow up in my office after angiogram friday.
-Other MRI findings may be attributed to trauma and/or diabetic arthropathy and are not infectious in nature.
2. Diabetes with peripheral neuropathy
-Previously poorly controlled but now on oral medication
3. Anxiety and depression
Subjective
Chief Complaint
39 year old female admitted with increased redness and discoloration left 5th toe. Approximately 2 weeks ago she noticed a blister on her left 5th toe, possibly caused by poor shoe gear. She treated it herself until seeing her primary care doctor
on 05/09 and was prescribed cephalexin. Later that day, redness began to develop in the foot and lower leg, and went to [facility] ED where she receivedone dose of IV antibiotics and was discharged. She presented to [place] ED after noticing a
dark discoloration on the bottom surface of the toe.
Subjective
Patient seen at bedside with no discomfort.
Objective
Temp Pulse Resp BP Pulse Ox
97.8 F 83 18 124/89 100
05/14/25 07:46 05/14/25 07:46 05/14/25 07:46 05/14/25 07:46 05/14/25 07:46
05/12/25 05:18
05/12/25 05:18
Vital Signs and Lab results were reviewed.
Review of Systems
Review of Systems
Review of Systems: No Fever and No Chills
Physical Exam
Physical Exam
left 5th toe with cyanotic changes dorsal and plantar, which does not extend proximal to sulcus. Dry eschar dorsal lateral at the PIPJ. Small amount of purulence expressed but no bleeding when eschar removed. Minimal edema noted and cellulitis
resolved. Profound neuropathy noted therefore patient has no pain with palpation or range of motion. Pedal pulses absent today but feet warm to touch. Clinical findings localized to the left 5th toe
[2025-05-14 12:32] LABS: Glucose - Point of Care 95 mg/dl (70-99)
[2025-05-14] MEDS: GLUCOPHAGE 1000 MG PO ×2 (12:33→21:37)
--- NOTE | 2025-05-14 14:49 | CON.ID ---
Consultation
-
Date/Time Consultation Requested: 05/14/2025 0823
Date/Time Consultation Performed: 05/14/2025 1340
Requesting Provider: Dr. Eastman
Performing Provider: Dr. Scott
Reason for Consultation: Left fifth toe infection
Chief Complaint / Past History
History of Present Illness
Triny Mcclure is a 39-year-old female with a significant past medical history of longstanding diabetes with diabetic neuropathy being evaluated at the request of Dr. Eastman in regards to a left foot infection. History is obtained from chart
review, along with patient interview.
The patient reports that she developed a blister on her left fifth toe around 05/02 secondary to poorly fitting shoes. After approximately 1 week the blister was not any better, and then she noted some redness and serous drainage. She also saw a
little bit of blood. She was evaluated by her PCP and prescribed cephalexin and mupirocin on 05/09. The next day she noted increased erythema and she went to the emergency room at [facility]. She received a dose of IV antibiotics and
was discharged to continue Keflex. The next day, the toe appeared more 'purple' and she came to the emergency room at [facility] for further evaluation. Since admission, an MRI has been performed which suggest osteomyelitis of the left
fifth toe, and Infectious Diseases is asked to comment upon further antimicrobial therapy.
Past History
Additional Past Medical History:
DM type II x 20 years
Diabetic neuropathy
Additional Past Surgical History:
Gastric sleeve
Allergy History:
lisinopril Allergy (Verified 05/11/25 14:57)
cough
Medications Reviewed: Yes
Current Antibiotics:
Cefazolin
Social History
Tobacco: Non-Smoker
Alcohol: None
Drug: None
Personal:
Living: With Family
Employment: Employed
Family History
Family History: Not Pertinent
Review of Systems
Vital Signs
Temp Pulse Resp BP Pulse Ox
97.8 F 83 18 124/89 100
05/14/25 07:46 05/14/25 07:46 05/14/25 07:46 05/14/25 07:46 05/14/25 07:46
Physical Exam
Physical Exam
Constitutional: No Acute Distress, Comfortable and Non-toxic
Eyes: No Conjunctival Hemorrhage and Sclera Anicteric
Oral: No Thrush and No Ulcers
Cardiovascular: Regular Rate and S1/S2; Negative S3/S4
Pulmonary: Clear; Negative Wheezes, Rales or Rhonchi
Gastrointestinal: Soft, Non Tender and Non Distended
Wound: Other (left 5th toe with lateral wound with purulent drainage.)
Neurological: Awake and Alert
Psychological: Calm
Lab / Diagnostic Study Results
05/12/25 05:18
05/12/25 05:18
Abs Immat Gran (auto) 0.1 10^3/uL (0-0.05) H 05/11/25 15:13
Absolute Neuts (auto) 7.6 10^3/uL (1.4-6.5) H 05/11/25 15:13
Absolute Lymphs (auto) 2.3 10^3/uL (1.2-3.4) 05/11/25 15:13
Absolute Monos (auto) 0.8 10^3/uL (0.1-0.6) H 05/11/25 15:13
Absolute Basos (auto) 0.0 10^3/uL (0-0.2) 05/11/25 15:13
Immature Gran % 0.5 % (0-0.5) 05/11/25 15:13
Neutrophils % 70.2 % (42.2-75.2) 05/11/25 15:13
Lymphocytes % 20.9 % (20.5-51.1) 05/11/25 15:13
Monocytes % 7.1 % (1.7-9.3) 05/11/25 15:13
Eosinophils % 1.0 % (0-6) 05/11/25 15:13
Basophils % 0.3 % (0-2) 05/11/25 15:13
ESR 73 mm/hour (0-20) H 05/12/25 05:18
Lactic Acid 0.7 mmol/L (0.7-2.0) 05/11/25 21:01
C-Reactive Protein 44.10 mg/L (0.0-10.00) H 05/12/25 05:18
Microbiology Results
Micro:
05/14/25 11:02 MRSA Screen - Pending
Nose
05/11/25 21:01 Blood Culture - Preliminary
Blood/Venous No Growth in 48 hours- Final report to follow
05/11/25 21:01 Blood Culture - Preliminary
Blood/Venous No Growth in 48 hours- Final report to follow
Imaging:
05/13/2025 MRI left lower extremity: there is a large amount of enhancing bone marrow signal abnormality throughout the proximal phalanx of the fifth toe. There is moderate patchy bone marrow signal abnormality in the head of the fifth metatarsal
with mild collapse of the distal articular surface. Also noted is osteonecrosis of the second metatarsal head.
05/08/2025 Lower extremity SVETLANA: right leg ABIs within normal limits. Left leg ABIs unobtainable secondary to poor vessel compressibility. TBI within normal limits. Multifocal flow within the common femoral through popliteal arteries. Multiphasic
pedal flow. Digital PPG waveforms appear dampened within the fifth toe.
Assessment / Plan
Left foot cellulitis
Suspected osteomyelitis of left toe.
DM type II x 20 years
Diabetic neuropathy
Recommendations:
Drainage from the left toe has been cultured.
Continue with antibiotic coverage.
At D/C, can likely transition back to oral keflex pending further culture data.
Patient for further workup of lower extremity arterial flow with outpatient angiography.
[2025-05-14 15:10] LABS: Vitamin B12 674 pg/ml (239-931)
[2025-05-14 15:20] VITALS: BP 131/84
[2025-05-14 16:55] LABS: Glucose - Point of Care 113 mg/dl (70-99)
[2025-05-14] MEDS: LOVENOX 40 MG SC (17:42)
[2025-05-14 21:27] LABS: Glucose - Point of Care 118 mg/dl (70-99)
[2025-05-14 23:04] VITALS: BP 130/90
[2025-05-15 07:15] LABS: Glucose - Point of Care 97 mg/dl (70-99)
[2025-05-15 07:16] LABS: Hematocrit 39.7 % (37.0-47.0); Hemoglobin 13.3 g/dL (12.0-16.0); Mean Corp Hgb Conc. 33.5 g/dL (33.0-37.0); Mean Corpuscular Volume 83.2 fL (81.0-99.0); Platelet Count 303 10^3/uL (130-400); Red Cell Dist. Width 13.0 % (11.5-14.5)
[2025-05-15 07:26] VITALS: BP 125/82
[2025-05-15 07:48] LABS: Blood Urea Nitrogen 28 mg/dl (7-17); Calcium 8.8 mg/dl (8.4-10.2); Carbon Dioxide 27 mmol/L (22-30); Chloride 105 mmol/L (98-107); Estimated Creatinine Clearance 76 ml/min; Glucose 90 mg/dl (70-99); Potassium 4.5 mmol/L (3.5-5.1); Sodium 139 mmol/L (135-145); eGFR > 60.00
[2025-05-15] MEDS: WELLBUTRIN XL (24 hour extended release) 150 MG PO (09:12)
[2025-05-15] MEDS: ANCEF 5 IV ×3 (09:12→23:24)
[2025-05-15] MEDS: FLUSH (NSS) 1 FLUSH IV ×2 (09:12→15:49)
[2025-05-15] MEDS: GLUCOPHAGE 1000 MG PO ×2 (09:12→21:31)
[2025-05-15] MEDS: TOPROL XL 50 MG PO ×2 (09:13→21:31)
[2025-05-15] MEDS: COZAAR 100 MG PO (09:13)
[2025-05-15] MEDS: THERAGRAN 1 TABLET PO (09:13)
[2025-05-15] MEDS: VITAMIN C 1000 MG PO (09:13)
[2025-05-15] MEDS: LIPITOR 40 MG PO (09:13)
[2025-05-15 11:58] LABS: Glucose - Point of Care 132 mg/dl (70-99)
--- NOTE | 2025-05-15 14:22 | W.PN.ID1 ---
Date of Service
Date of Service: May 15, 2025
Today's Communication
Continue antibiotics. See below�
Assessment / Plan
Left foot cellulitis
Suspected osteomyelitis of left toe.
DM type II x 20 years
Diabetic neuropathy
Recommendations:
Drainage from the left toe has been cultured.
Continue with cefazolin.
At D/C, can likely transition back to oral keflex.
Patient for further workup of lower extremity arterial flow with outpatient angiography, and likely fifth toe amputation thereafter.
Chief Complaint
-: Cellulitis and Other (Left fifth toe osteomyelitis)
Subjective / Review of Systems
Review of Systems: No Fever and No Chills
Vital Signs / Physical Exam
Vital Signs
Vital Signs
Temp Pulse Resp BP Pulse Ox
97.8 F 78 16 125/86 99
05/15/25 07:26 05/15/25 09:13 05/15/25 07:26 05/15/25 09:13 05/15/25 09:09
Physical Exam
Constitutional: No Acute Distress, Comfortable and Non-toxic
Eyes: No Conjunctival Hemorrhage
Pulmonary: Non Labored
Skin: Warm and Dry; Negative Jaundice
Wound: Other (Left foot dressed. No strikethrough.)
Neurological: Awake and Alert
Objective Data
Lab Data
Lab Results
05/15/25 06:43
05/15/25 06:43
ESR 73 mm/hour (0-20) H 05/12/25 05:18
Estimated Creat Clear 76 ml/min 05/15/25 06:43
Lactic Acid 0.7 mmol/L (0.7-2.0) 05/11/25 21:01
Total Bilirubin 0.9 mg/dl (0.2-1.3) 05/11/25 15:13
AST 17 U/L (14-36) 05/11/25 15:13
ALT 15 U/L (0-35) 05/11/25 15:13
Alkaline Phosphatase 60 U/L (38-126) 05/11/25 15:13
C-Reactive Protein 44.10 mg/L (0.0-10.00) H 05/12/25 05:18
Most recent labs reviewed.
Micro Results:
05/14/25 14:57 Wound Culture - Preliminary
Foot - Left Gram Stain - Preliminary
05/14/25 11:02 MRSA Screen - Final
Nose No Methicillin Resistant Staphylococcus aureus isolated.
05/11/25 21:01 Blood Culture - Preliminary
Blood/Venous No Growth in 72 hours- Final report to follow
05/11/25 21:01 Blood Culture - Preliminary
Blood/Venous No Growth in 72 hours- Final report to follow
Imaging:
05/13/2025 MRI left lower extremity: there is a large amount of enhancing bone marrow signal abnormality throughout the proximal phalanx of the fifth toe. There is moderate patchy bone marrow signal abnormality in the head of the fifth metatarsal
with mild collapse of the distal articular surface. Also noted is osteonecrosis of the second metatarsal head.
05/08/2025 Lower extremity SVETLANA: right leg ABIs within normal limits. Left leg ABIs unobtainable secondary to poor vessel compressibility. TBI within normal limits. Multifocal flow within the common femoral through popliteal arteries. Multiphasic
pedal flow. Digital PPG waveforms appear dampened within the fifth toe.
--- NOTE | 2025-05-15 15:09 | W.PN.HOSP.TC ---
Today's Communication/Plan
-
IVF
watch Creat
Angio Friday
Assessment / Plan
Assessment / Plan
39-year-old with left toe cellulitis.'Wound originally started 2 weeks ago as a blister on the left fifth toe that she attributes to poorly fitting slippers that she wore while on vacation. Also did some hiking. The blister improved and then
subsequently worsened 4 days ago with findings of left leg cellulitis. Saw her primary care physician and started on oral cephalexin 3 days ago, along with topical mupirocin. Had purulent drainage from the left fifth toe 2 days ago and went to the
emergency room at [facility]. Administered 1 dose of IV antibiotics and discharged.She came into our emergency room 05/11 evening for discoloration of the left fifth toe. She denies any pain, attributed to her longstanding
neuropathy.
No signs or symptoms of sepsis.'
MRI 05/13/2025-large amount of enhancing bone marrow signal abnormality throughout the proximal phalanx of the fifth toe moderate patchy bone marrow signal abnormality in the head of the fifth metatarsal and mild collapse of the distal articular
surface. Diagnostic possibilities acute osteonecrosis and bone infarction, due to osteomyelitis.
Osteonecrosis of the second metatarsal head and acute subchondral insufficiency fracture of the right diagnosis
Bone marrow edema adjacent to the navicular cuneiform joint suggesting arthrosis
Moderate diffuse edema throughout the dorsal subcutaneous fat
SVETLANA right 1.27 TBI 1.21
SVETLANA left-SVETLANA unobtainable. TBI 0.92 digital waveforms appear dampened within the fifth toe
CVS: S1-S2 normal
Chest: CTA B/L
Abdomen: Soft, NT / Bowel sounds present
Extremities: left 5 th toe , cyanosis better, Purulent drainage
# Left fifth toe cellulitis with cyanotic changes
Started as a blister and progressed to cellulitis
Infectious disease consultation
Likely has small vessel disease
Await Podiatry eval today given MRI findings
Vascular planning for angiogram on Friday
# Diabetes with peripheral neuropathy hemoglobin A1c-5.8
patient states she was originally diagnosed with diabetes 19-20 years ago, poorly controlled for a long time as she said she was in denial . Initially required insulin but subsequently lost weight and is now managed with oral medications alone.
On Jardiance 25 mg, metformin 1000 mg twice daily, Mounjaro 7.5 mg on Mondays as outpatient
Hold Jardiance in case needs any OR procedures and NPO
# Hyperlipidemia-continue atorvastatin
# CINDY - IVF
# Hypertension-continue metoprolol 50 mg twice daily, losartan 100 mg daily
# Anxiety and depression-continue Wellbutrin
# Obesity with a BMI of 35-on Mounjaro. History of gastric sleeve procedure
# DVT prophylaxis-continue Lovenox
# Full code
D//W ID
D/W Mom at bed side. They are concerned re her discharge./ Wants to stay and get Angiogram done.
Part of this note was created using voice recognition system. Occasional wrong word or��sound alike� substitutions may have inadvertently occurred due to the inherent limitations of voice recognition software. If noted kindly bring it to my
attention for correction.
Anticipated Discharge: 24 - 48 hours
Subjective/Interval History
-
Date of Service: May 15, 2025
Objective Data
-
Labs:
Laboratory Results
05/15/25
06:43
WBC 9.1
Hgb 13.3
Hct 39.7
Plt Count 303
Sodium 139
Potassium 4.5
Chloride 105
Carbon Dioxide 27
BUN 28 H
Creatinine 1.1 H
Glucose 90
Calcium 8.8
Vital Signs:
Vital Signs
Temp Pulse Resp BP Pulse Ox
97.8 F 78 16 125/86 99
05/15/25 07:26 05/15/25 09:13 05/15/25 07:26 05/15/25 09:13 05/15/25 09:09
I&O
05/14/25 05/15/25 05/16/25
06:59 06:59 06:59
Intake Total 660 / 660 900 / 900
Balance 660 / 660 900 / 900
[2025-05-15 15:32] VITALS: BP 140/92
--- NOTE | 2025-05-15 15:47 | PTCARENOTE ---
Pt AAO x3, JONES well, ambulatory in room/aguilar; wears Darco shoe to Lt foot when OOB. VSS. On room air- pulse ox 99%, no SOB noted. Abd obese, soft, reji PO well. Void in BR without difficulty. Lt foot dsg D/I. Pt to be started on IVF's NSS @ 75
ml/hr. Resting in bed at present. Will continue to monitor.
[2025-05-15] MEDS: NSS 1000 IV (15:49)
[2025-05-15 16:51] LABS: Glucose - Point of Care 99 mg/dl (70-99)
[2025-05-15] MEDS: LOVENOX 40 MG SC (17:35)
[2025-05-15 21:25] LABS: Glucose - Point of Care 126 mg/dl (70-99)
[2025-05-15 23:21] VITALS: BP 140/86
[2025-05-16 07:27] VITALS: BP 141/87
[2025-05-16 08:00] LABS: Glucose - Point of Care 89 mg/dl (70-99)
[2025-05-16 08:36] LABS: Blood Urea Nitrogen 22 mg/dl (7-17); Calcium 8.4 mg/dl (8.4-10.2); Carbon Dioxide 24 mmol/L (22-30); Chloride 108 mmol/L (98-107); Estimated Creatinine Clearance 83 ml/min; Glucose 84 mg/dl (70-99); Potassium 4.2 mmol/L (3.5-5.1); Sodium 139 mmol/L (135-145); eGFR > 60.00
[2025-05-16] MEDS: FLUSH (NSS) 2 FLUSH IV ×2 (09:13→14:40)
[2025-05-16] MEDS: ANCEF 5 IV (09:13)
[2025-05-16] MEDS: COZAAR 100 MG PO (09:14)
[2025-05-16] MEDS: VITAMIN C 1000 MG PO (09:14)
[2025-05-16] MEDS: LIPITOR 40 MG PO (09:14)
[2025-05-16] MEDS: GLUCOPHAGE 1000 MG PO ×2 (09:14→21:16)
[2025-05-16] MEDS: WELLBUTRIN XL (24 hour extended release) 150 MG PO (09:14)
[2025-05-16] MEDS: TOPROL XL 50 MG PO ×2 (09:14→21:16)
[2025-05-16] MEDS: THERAGRAN 1 TABLET PO (09:15)
[2025-05-16 12:28] LABS: Glucose - Point of Care 104 mg/dl (70-99)
--- NOTE | 2025-05-16 12:59 | W.PN.ID1 ---
Date of Service
Date of Service: May 16, 2025
Today's Communication
Continue antibiotics.
Assessment / Plan
Left foot cellulitis
Suspected osteomyelitis of left toe.
DM type II x 20 years
Diabetic neuropathy
Recommendations:
Left fifth toe drainage with growth of Staph aureus (PBP2a negative)
Continue with cefazolin.
Await tentative angiography tomorrow.
����������������������������������������������������������
Chief Complaint
-: Cellulitis and Other (Left fifth toe osteomyelitis)
Subjective / Review of Systems
Review of Systems: No Fever and No Chills
Vital Signs / Physical Exam
Vital Signs
Vital Signs
Temp Pulse Resp BP Pulse Ox
98.1 F 80 18 141/87 100
05/16/25 07:27 05/16/25 07:27 05/16/25 07:27 05/16/25 07:27 05/16/25 07:27
Physical Exam
Constitutional: No Acute Distress, Comfortable and Non-toxic
Eyes: No Conjunctival Hemorrhage and Sclera Anicteric
Cardiovascular: S1/S2; Negative S3/S4
Pulmonary: Non Labored
Gastrointestinal: Soft, Non Tender and Non Distended
Wound: Other (Left fifth toe with lateral purulent drainage.)
Neurological: Awake and Alert
Psychological: Calm
Objective Data
Lab Data
Lab Results
05/15/25 06:43
05/16/25 06:54
ESR 73 mm/hour (0-20) H 05/12/25 05:18
Estimated Creat Clear 83 ml/min 05/16/25 06:54
Lactic Acid 0.7 mmol/L (0.7-2.0) 05/11/25 21:01
Total Bilirubin 0.9 mg/dl (0.2-1.3) 05/11/25 15:13
AST 17 U/L (14-36) 05/11/25 15:13
ALT 15 U/L (0-35) 05/11/25 15:13
Alkaline Phosphatase 60 U/L (38-126) 05/11/25 15:13
C-Reactive Protein 44.10 mg/L (0.0-10.00) H 05/12/25 05:18
Most recent labs reviewed.
Micro Results:
05/14/25 14:57 Wound Culture - Preliminary
Foot - Left Staphylococcus aureus
Gram Stain - Preliminary
05/11/25 21:01 Blood Culture - Preliminary
Blood/Venous No Growth in 4 days- Final report to follow
05/11/25 21:01 Blood Culture - Preliminary
Blood/Venous No Growth in 4 days- Final report to follow
05/14/25 11:02 MRSA Screen - Final
Nose No Methicillin Resistant Staphylococcus aureus isolated.
Imaging:
05/13/2025 MRI left lower extremity: there is a large amount of enhancing bone marrow signal abnormality throughout the proximal phalanx of the fifth toe. There is moderate patchy bone marrow signal abnormality in the head of the fifth metatarsal
with mild collapse of the distal articular surface. Also noted is osteonecrosis of the second metatarsal head.
05/08/2025 Lower extremity SVETLANA: right leg ABIs within normal limits. Left leg ABIs unobtainable secondary to poor vessel compressibility. TBI within normal limits. Multifocal flow within the common femoral through popliteal arteries. Multiphasic
pedal flow. Digital PPG waveforms appear dampened within the fifth toe.
[2025-05-16] MEDS: ANCEF 10 IV ×2 (14:39→21:18)
--- NOTE | 2025-05-16 15:46 | W.PN.HOSP.TC ---
Today's Communication/Plan
-
NPO after MN for arteriogram tomorrow.
Continue IV AB
May need amputation of the 5 th toe ( Pt aware)
Assessment / Plan
Assessment / Plan
39-year-old with left toe cellulitis.'Wound originally started 2 weeks ago as a blister on the left fifth toe that she attributes to poorly fitting slippers that she wore while on vacation. Also did some hiking. The blister improved and then
subsequently worsened 4 days ago with findings of left leg cellulitis. Saw her primary care physician and started on oral cephalexin 3 days ago, along with topical mupirocin. Had purulent drainage from the left fifth toe 2 days ago and went to the
emergency room at [facility]. Administered 1 dose of IV antibiotics and discharged.She came into our emergency room 05/11 evening for discoloration of the left fifth toe. She denies any pain, attributed to her longstanding
neuropathy.
No signs or symptoms of sepsis.'
MRI 05/13/2025-large amount of enhancing bone marrow signal abnormality throughout the proximal phalanx of the fifth toe moderate patchy bone marrow signal abnormality in the head of the fifth metatarsal and mild collapse of the distal articular
surface. Diagnostic possibilities acute osteonecrosis and bone infarction, due to osteomyelitis.
Osteonecrosis of the second metatarsal head and acute subchondral insufficiency fracture of the right diagnosis
Bone marrow edema adjacent to the navicular cuneiform joint suggesting arthrosis
Moderate diffuse edema throughout the dorsal subcutaneous fat
SVETLANA right 1.27 TBI 1.21
SVETLANA left-SVETLANA unobtainable. TBI 0.92 digital waveforms appear dampened within the fifth toe
CVS: S1-S2 normal
Chest: CTA B/L
Abdomen: Soft, NT / Bowel sounds present
Extremities: left 5 th toe , cyanosis better, Purulent drainage
# Left fifth toe cellulitis with cyanotic changes
Started as a blister and progressed to cellulitis
Infectious disease consultation
Likely has small vessel disease
Await Podiatry eval today given MRI findings
Vascular planning for angiogram on Friday
# Diabetes with peripheral neuropathy hemoglobin A1c-5.8
patient states she was originally diagnosed with diabetes 19-20 years ago, poorly controlled for a long time as she said she was in denial . Initially required insulin but subsequently lost weight and is now managed with oral medications alone.
On Jardiance 25 mg, metformin 1000 mg twice daily, Mounjaro 7.5 mg on Mondays as outpatient
Hold Jardiance for OR procedures and NPO
# Hyperlipidemia-continue atorvastatin
# CINDY - improved.
# Hypertension-continue metoprolol 50 mg twice daily, losartan 100 mg daily
# Anxiety and depression-continue Wellbutrin
# Obesity with a BMI of 35-on Mounjaro. History of gastric sleeve procedure
# DVT prophylaxis-continue Lovenox
# Full code
D//W ID
D/W Mom at bed side.
D/W Vascular
Part of this note was created using voice recognition system. Occasional wrong word or��sound alike� substitutions may have inadvertently occurred due to the inherent limitations of voice recognition software. If noted kindly bring it to my
attention for correction.
Anticipated Discharge: 24 - 48 hours
Subjective/Interval History
-
Date of Service: May 16, 2025
Objective Data
-
Labs:
Laboratory Results
05/16/25
06:54
Sodium 139
Potassium 4.2
Chloride 108 H
Carbon Dioxide 24
BUN 22 H
Creatinine 1.0
Glucose 84
Calcium 8.4
Vital Signs:
Vital Signs
Temp Pulse Resp BP Pulse Ox
98.1 F 80 18 141/87 100
05/16/25 07:27 05/16/25 07:27 05/16/25 07:27 05/16/25 07:27 05/16/25 07:27
I&O
05/15/25 05/16/2525
06:59 06:59 06:59
Intake Total 900 / 900 1220 / 1220
Balance 900 / 900 1220 / 1220
[2025-05-16 15:48] VITALS: BP 119/81
--- NOTE | 2025-05-16 16:47 | CM ---
Pt anticipates returning home with no needs.
[2025-05-16 17:08] LABS: Glucose - Point of Care 125 mg/dl (70-99)
[2025-05-16] MEDS: LOVENOX 40 MG SC (17:53)
[2025-05-16 20:37] LABS: Glucose - Point of Care 126 mg/dl (70-99)
[2025-05-16 23:32] VITALS: BP 150/86
[2025-05-17] VITALS (19 sets, daily range): BP systolic 119–131; BP diastolic 74–85
[2025-05-17] MEDS: ANCEF 10 IV ×2 (05:51→21:24)
[2025-05-17 05:58] LABS: Glucose - Point of Care 86 mg/dl (70-99)
[2025-05-17 07:55] LABS: Blood Urea Nitrogen 21 mg/dl (7-17); Calcium 8.5 mg/dl (8.4-10.2); Carbon Dioxide 23 mmol/L (22-30); Chloride 109 mmol/L (98-107); Estimated Creatinine Clearance 83 ml/min; Glucose 90 mg/dl (70-99); Potassium 4.4 mmol/L (3.5-5.1); Sodium 138 mmol/L (135-145); eGFR > 60.00
[2025-05-17 08:16] LABS: Glucose - Point of Care 98 mg/dl (70-99)
[2025-05-17] MEDS: TOPROL XL 50 MG PO ×2 (08:28→20:39)
[2025-05-17] MEDS: WELLBUTRIN XL (24 hour extended release) 150 MG PO (08:28)
[2025-05-17] MEDS: LIPITOR 40 MG PO (08:28)
[2025-05-17] MEDS: THERAGRAN 1 TABLET PO (08:29)
[2025-05-17] MEDS: COZAAR 100 MG PO (08:29)
[2025-05-17] MEDS: VITAMIN C 1000 MG PO (08:29)
[2025-05-17 11:52] LABS: Glucose - Point of Care 85 mg/dl (70-99)
--- NOTE | 2025-05-17 13:29 | W.PN.HOSP.TC ---
Today's Communication/Plan
-
Arteriogram
Assessment / Plan
Assessment / Plan
39-year-old with left toe cellulitis.'Wound originally started 2 weeks ago as a blister on the left fifth toe that she attributes to poorly fitting slippers that she wore while on vacation. Also did some hiking. The blister improved and then
subsequently worsened 4 days ago with findings of left leg cellulitis. Saw her primary care physician and started on oral cephalexin 3 days ago, along with topical mupirocin. Had purulent drainage from the left fifth toe 2 days ago and went to the
emergency room at [facility]. Administered 1 dose of IV antibiotics and discharged.She came into our emergency room 05/11 evening for discoloration of the left fifth toe. She denies any pain, attributed to her longstanding
neuropathy.
No signs or symptoms of sepsis.'
MRI 05/13/2025-large amount of enhancing bone marrow signal abnormality throughout the proximal phalanx of the fifth toe moderate patchy bone marrow signal abnormality in the head of the fifth metatarsal and mild collapse of the distal articular
surface. Diagnostic possibilities acute osteonecrosis and bone infarction, due to osteomyelitis.
Osteonecrosis of the second metatarsal head and acute subchondral insufficiency fracture of the right diagnosis
Bone marrow edema adjacent to the navicular cuneiform joint suggesting arthrosis
Moderate diffuse edema throughout the dorsal subcutaneous fat
SVETLANA right 1.27 TBI 1.21
SVETLANA left-SVETLANA unobtainable. TBI 0.92 digital waveforms appear dampened within the fifth toe
CVS: S1-S2 normal
Chest: CTA B/L
Abdomen: Soft, NT / Bowel sounds present
Extremities: left 5 th toe , cyanosis better, Purulent drainage
Seen earlier. Late documentation
# Left fifth toe cellulitis with cyanotic changes
Started as a blister and progressed to cellulitis
Infectious disease consultation
Likely has small vessel disease
Await Podiatry eval today given MRI findings
Vascular planning angiogram today
# Diabetes with peripheral neuropathy hemoglobin A1c-5.8
patient states she was originally diagnosed with diabetes 19-20 years ago, poorly controlled for a long time as she said she was in denial . Initially required insulin but subsequently lost weight and is now managed with oral medications alone.
On Jardiance 25 mg, metformin 1000 mg twice daily, Mounjaro 7.5 mg on Mondays as outpatient. ( Didnt get on 05/16/25)
Hold Jardiance for OR procedures and NPO
# Hyperlipidemia-continue atorvastatin
# CINDY - improved.
# Hypertension-continue metoprolol 50 mg twice daily, losartan 100 mg daily
# Anxiety and depression-continue Wellbutrin
# Obesity with a BMI of 35-on Mounjaro. History of gastric sleeve procedure
# DVT prophylaxis-continue Lovenox
# Full code
D/W RN
Part of this note was created using voice recognition system. Occasional wrong word or��sound alike� substitutions may have inadvertently occurred due to the inherent limitations of voice recognition software. If noted kindly bring it to my
attention for correction.
Anticipated Discharge: 24 - 48 hours
Subjective/Interval History
-
Date of Service: May 17, 2025
Objective Data
-
Labs:
Laboratory Results
05/17/25
06:59
Sodium 138
Potassium 4.4
Chloride 109 H
Carbon Dioxide 23
BUN 21 H
Creatinine 1.0
Glucose 90
Calcium 8.5
Vital Signs:
Vital Signs
Temp Pulse Resp BP Pulse Ox
97.8 F 71 16 124/83 98
05/17/25 12:54 05/17/25 12:54 05/17/25 12:54 05/17/25 12:54 05/17/25 12:54
I&O
05/16/25 05/17/25 05/18/25
06:59 06:59 06:59
Intake Total 1220 / 1220 840 / 840
Balance 1220 / 1220 840 / 840
[2025-05-17] MEDS: ANCEF IV (14:39)
--- NOTE | 2025-05-17 15:15 | W.SUR.POST ---
Surgical Immediate Post Op
Note
Pre Op Diagnosis: Left fifth toe wound
Post Op Diagnosis: Left fifth toe wound
Procedure Performed: LLE diagnostic angiography via R femoral access.
Primary Surgeon: Matheus Gauthier III, MD
Secondary Surgeons: Howie Bland MD
Anesthesia: see anesthesia report
Estimated Blood Loss: 2 cc
Fluids: see anesthesia report
Drains/Shunts: none
Specimens/Cultures: none
Doppler/Duplex/Angio (Y/N): angiogram
Complications: none
Operative Findings: No proximal (iliac/femoral/popliteal) disease. Three vessel runoff. Small segment occlusion of the DP at the level of the foot, with adequate collaterals to the fifth toe via the medial and lateral plantar branches.
--- NOTE | 2025-05-17 15:31 | OR.RPT ---
Operative Report
Operative Report
Date of Operation: 05/17/2025
Pre Op Diagnosis:
1. Diabetes with peripheral artery disease
2. Left fifth toe ischemia
Post Op Diagnosis:
1. Diabetes with peripheral artery disease
2. Left fifth toe ischemia
Procedure:
1. Selective catheterization of the right artery lower extremity artery
2. Diagnostic aortobiiliac arteriogram
3. Diagnostic left lower extremity arteriogram
Surgeon: Matheus Gauthier III, MD
General Adjuster: Howie Bland MD PGY-6
Anesthesia: Sedation with local
Complications: None
Estimated Blood Loss: Less than 20 cc
History and Indications for Procedure: 39-year-old female with longstanding diabetes and left fifth toe ischemia
Procedure in Detail: Triny Mcclure was correctly identified and placed supine on the operating table. After adequate induction of anesthesia the bilateral groins were prepped and draped in the usual sterile fashion. A timeout was performed with the
nursing and anesthesia staff confirming the patient's identity as well as the nature and laterality of the procedure.
The right common femoral artery was identified under ultrasound guidance. The artery was patent. The superior and inferior aspects of the femoral head were identified with radiographic guidance and marked at the skin level. The proposed puncture
site was infiltrated with local anesthesia. Under ultrasound guidance we accessed the right common femoral artery with a micropuncture needle and upsized to a 5 Fr sheath over a Bentson wire. The wire and a Shepherds hook flush catheter were
advanced into the distal abdominal aorta and a diagnostic aorto-biiliac arteriogram was performed:
AORTO-ILIAC ARTERIOGRAM:
Aorta: Widely patent with no stenosis identified
Right common iliac artery: Widely patent with no stenosis identified
Right external iliac artery: Widely patent with no stenosis identified
Left common iliac artery: Widely patent with no stenosis identified
Left external iliac artery: Widely patent with no stenosis identified
Under roadmap guidance using a Glidewire and the Shepherds hook catheter we selected the left common iliac artery and then the external iliac artery. A catheter was tracked up and over the aortic bifurcation and placed in the distal external iliac
artery. A diagnostic left lower extremity arteriogram was then performed which demonstrated the following:
LEFT LOWER EXTREMITY:
Common femoral artery: Widely patent with no stenosis identified
Profunda femoral artery: Widely patent with no stenosis identified
Superficial femoral artery: Widely patent with no stenosis identified
Popliteal artery: Patent. Mild focal stenoses identified behind the knee and below the knee
Anterior tibial artery: Patent but sluggish flow compared to the posterior tibial peroneal arteries. There appears to be a focal occlusion of the dorsalis pedis artery.
Tibioperoneal trunk: Patent with no stenosis identified
Peroneal artery: Patent with no stenosis identified
Posterior tibial artery: Patent with no stenosis identified. Brisk flow. Continues across the ankle to form the medial and lateral plantar branches which supplied the forefoot. Flow through the plantar branch is identified to the fifth toe.
Satisfied with this diagnostic result we concluded the procedure. The sheath was pulled and direct manual pressure was held over the puncture site until hemostasis was achieved. A sterile dressing was applied.
The patient tolerated the procedure well and was taken to the recovery area in stable condition.
Attestation: I was present and responsible for the entire procedure.
Signed:
Matheus Gauthier III, MD
Vascular Surgery
[facility]
[2025-05-17 15:58] LABS: Glucose - Point of Care 83 mg/dl (70-99)
--- NOTE | 2025-05-17 17:13 | PTCARENOTE ---
Pt returned from PACU via bed, accompanied byYULY RN's. Pt AAO x3, JONES; on bedrest/flat in bed x 2 hrs post-procedure. VSS. On room air- puls eox 98%, no SOB noted. Abd large, soft, to resume 1800 kiersten diet. Left foot dsg D/I; Rt femoral site dsg
D/I. Circ/neuro checks to BLE WNL; Lt foot pulses by Doppler. IVFs NSS @ 80 ml/hr initiated via Rt forearm site, currently infusing without sx of infiltration. Pt informed of when HOB can be raised/OOB activity. Resting comfortably at present.
Will continue to monitor.
[2025-05-17] MEDS: NSS 1000 IV (17:20)
[2025-05-17] MEDS: LOVENOX 40 MG SC (17:21)
[2025-05-17] MEDS: FLUSH (NSS) 1 FLUSH IV (17:21)
[2025-05-17 17:50] LABS: Glucose - Point of Care 80 mg/dl (70-99)
[2025-05-17 20:37] LABS: Glucose - Point of Care 192 mg/dl (70-99)
[2025-05-17] MEDS: GLUCOPHAGE 1000 MG PO (20:40)
[2025-05-18] VITALS (13 sets, daily range): BP systolic 106–140; BP diastolic 62–83
[2025-05-18] MEDS: ANCEF 10 IV ×2 (06:00→14:02)
[2025-05-18 07:59] LABS: Glucose - Point of Care 93 mg/dl (70-99)
--- NOTE | 2025-05-18 08:06 | W.PN.VS ---
Today's Communication / Plan
-
Discussed with Dr. Gauthier
Assessment/Plan
-
Postop day 1 diagnostic arteriogram
Plan:
Plan for toe amputation with podiatry today
Please call with questions or concerns, will leave contact information in the chart for the patient
Subjective Data
-
Date of Service: May 18, 2025
Patient seen at the bedside this a.m. Patient offers no complaints at this time. No events overnight. Toe site stable.
Objective Data
-
Vital Signs
Temp Pulse Resp BP Pulse Ox
98.1 F 74 18 121/78 98
05/18/25 03:46 05/18/25 03:46 05/18/25 03:46 05/18/25 03:46 05/18/25 03:46
Intake and Output
05/17/25 05/18/25 05/19/25
06:59 06:59 06:59
Intake Total 840 / 840 680 / 680
Balance 840 / 840 680 / 680
Intake:
Oral fluids 840 / 840 480 / 480
IV fluids (Total) 200 / 200
NSS 100 / 100
Other:
Number of approximated MODERATE 2 1
amounts of urine
How many times incontinent 4 3
MODERATE amount urine
Lab Results
05/15/25 06:43
05/17/25 06:59
Calcium 8.5 mg/dl (8.4-10.2) 05/17/25 06:59
Total Bilirubin 0.9 mg/dl (0.2-1.3) 05/11/25 15:13
AST 17 U/L (14-36) 05/11/25 15:13
ALT 15 U/L (0-35) 05/11/25 15:13
Alkaline Phosphatase 60 U/L (38-126) 05/11/25 15:13
Total Protein 6.9 g/dl (6.3-8.2) 05/11/25 15:13
Albumin 3.8 g/dl (3.5-5.0) 05/11/25 15:13
Physical Exam
-
AAO x 3
No tachypnea on room air
No tachycardia
Groin site clean, dry, intact, soft, flat
Toe site unchanged
Feet warm bilaterally
--- NOTE | 2025-05-18 08:08 | W.PN.POD ---
Today's Communication
Today's Communication
to OR tonight for 5th toe/met head amputation
Assessment / Plan
-
Assessment/Plan
1. Left 5th toe wound with cellulitis
-Began as a blister which patient cared for herself until she noted redness and swelling.
-Radiographs unremarkable
-MRI shows bone marrow abnormality throughout the 5th proximal phalanx with patchy bone marrow signal abnormality in the head of the 5th metatarsal. findings may be due to acute osteomyelitis or acute osteonecrosis. Osteonecrosis noted 2nd
metatarsal head with bone marrow edema at the naviculocuneiform joint and diffuse edema throughout the dorsal subcutaneous fat. These findings may be attributed to trauma and/or diabetic arthropathy and are not infectious in nature.
-Arterial ultrasound significant as Left SVETLANA unobtainable due to poor vessel compressibility. Addendum by Dr. Gauthier noted suspicion of tibial artery and small vessel disease. Angiogram shows flow to the 5th toe from the posterior tibial artery
and plantar branches
-Discussed with patient amputation of the 5th toe and metatarsal head. Planning on primary closure. Scheduled for this evening and patient will remain NPO after breakfast
2. Diabetes with peripheral neuropathy
-Previously poorly controlled but now on oral medication
3. Anxiety and depression
Subjective
Objective
Temp Pulse Resp BP Pulse Ox
99.2 F 66 18 119/69 97
05/18/25 08:06 05/18/25 08:06 05/18/25 08:06 05/18/25 08:06 05/18/25 08:06
05/15/25 06:43
05/17/25 06:59
Vital Signs and Lab results were reviewed.
Physical Exam
Physical Exam
No cellulitis noted but toe remains edematous locally with original blister site probing to bone. No purulence noted
[2025-05-18] MEDS: THERAGRAN 1 TABLET PO (08:54)
[2025-05-18] MEDS: GLUCOPHAGE 1000 MG PO ×2 (08:54→21:52)
[2025-05-18] MEDS: VITAMIN C 1000 MG PO (08:54)
[2025-05-18] MEDS: WELLBUTRIN XL (24 hour extended release) 150 MG PO (08:54)
[2025-05-18] MEDS: TOPROL XL 50 MG PO ×2 (08:55→21:52)
[2025-05-18] MEDS: LIPITOR 40 MG PO (08:55)
[2025-05-18] MEDS: COZAAR 100 MG PO (08:56)
--- NOTE | 2025-05-18 09:07 | PN.CDI ---
Addendum entered and electronically signed by Jaxson Eastman MD 05/18/25 09:28:
Documentation is complete at this time.
Original Note:
CDI
- -
CDI:
Physician Documentation Request
Admit Date: 05/16/25 07:28
Dear Doctor Jaren,
Please review the following and provide your response in the progress notes.
The purpose of this query is not to question medical judgement, but to ensure the accuracy of the conditions reported for your patient.
Diagnosis:
The diagnosis of CINDY is documented in the record on 05/17 PN.
There is either a lack of clinical support for this condition in the current medical record, or there is a lack of recognized standard criteria to support the condition.
Clinical indicators:
- 05/17 PN 'CINYD - improved'
Laboratory Tests
05/12/25 05/15/25 05/16/25
05:18 06:43 06:54
Creatinine 0.9 1.1 H 1.0
eGFR > 60.00 > 60.00 > 60.00
The request is for one of the following:
- Additional documentation to support the condition. Indicate if this is in lieu of what may be considered standard criteria, and/or support why the standard criteria may not be present for this patient.
CINDY remains a known condition for this patient and is further supported by (include additional documentation in the medical record)
CINDY has been ruled out
Other (please specify)
Criteria for CINDY*
1 Increase in serum creatinine by > or = to 0.3 mg/dL (> or = to 26.5 micromol/L) within 48 hours, OR
2 Increase in serum creatinine to > or = to 1.5 times baseline, which is known or presumed to have occurred within 7 days, OR
3 Urine volume < 0.5 nL/kg/hour for six hours
Stages of Chronic Kidney Disease*
Level Description GFR
G1 Normal or High >90
G2 Mildly decreased 60-89
G3a Mildly to moderately decreased 45-59
G3b Moderately to severely decreased 30-44
G4 Severely decreased 15-29
G5 Kidney failure <15
Use of terms such as suspected, likely, concern for, or probable (associated with a specific diagnosis that is being evaluated, monitored, or treated as if it exists) are acceptable and can be coded in the inpatient setting, when documented at the
time of discharge.
Thank you,
Hardy Tan RN
CDI Specialist
Please use your independent medical judgment in providing your response.
*Source: Kidney Disease: Improving Global Outcomes (KDIGO) 2012
--- NOTE | 2025-05-18 10:05 | CARDSERVLU ---
Echocardiogram with Lumason completed after protocol screening completed. Allergies verified.
Patent IV site: ___R FA__
IV site flushed with 0.9% NaCl pre and post administration.
Diluted bolus method utilized to enhance visualization of ventricular quick.
Total volume given: __1.5__ mL
Patient tolerated all procedures well without complications.
[2025-05-18 11:26] LABS: Glucose - Point of Care 89 mg/dl (70-99)
--- NOTE | 2025-05-18 14:05 | W.PN.HOSP.TC ---
Today's Communication/Plan
-
Amputation of 5 th toe today
Assessment / Plan
Assessment / Plan
39-year-old with left toe cellulitis.'Wound originally started 2 weeks ago as a blister on the left fifth toe that she attributes to poorly fitting slippers that she wore while on vacation. Also did some hiking. The blister improved and then
subsequently worsened 4 days ago with findings of left leg cellulitis. Saw her primary care physician and started on oral cephalexin 3 days ago, along with topical mupirocin. Had purulent drainage from the left fifth toe 2 days ago and went to the
emergency room at [facility]. Administered 1 dose of IV antibiotics and discharged.She came into our emergency room 05/11 evening for discoloration of the left fifth toe. She denies any pain, attributed to her longstanding
neuropathy.
No signs or symptoms of sepsis.'
MRI 05/13/2025-large amount of enhancing bone marrow signal abnormality throughout the proximal phalanx of the fifth toe moderate patchy bone marrow signal abnormality in the head of the fifth metatarsal and mild collapse of the distal articular
surface. Diagnostic possibilities acute osteonecrosis and bone infarction, due to osteomyelitis.
Osteonecrosis of the second metatarsal head and acute subchondral insufficiency fracture of the right diagnosis
Bone marrow edema adjacent to the navicular cuneiform joint suggesting arthrosis
Moderate diffuse edema throughout the dorsal subcutaneous fat
SVETLANA right 1.27 TBI 1.21
SVETLANA left-SVETLANA unobtainable. TBI 0.92 digital waveforms appear dampened within the fifth toe
CTA-minimal calcification of the distal abdominal aorta. No evidence of thoracic or abdominal aortic aneurysm. No evidence of focal embolism. Atelectasis or linear scar along. Cholelithiasis without any evidence of cholecystitis uterine device
is present in the uterus appropriately positioned. Mild splenomegaly
Echo normal LV size wall thickness and systolic function. EF 65 to 70%. Normal diastolic function. Normal RV size and function.
CVS: S1-S2 normal
Chest: CTA B/L
Abdomen: Soft, NT / Bowel sounds present
# Left fifth toe cellulitis with cyanotic changes
05/17/2025 arteriogram-right lower extremity artery catheterization-no stenosis anterior tibial artery patent with sluggish flow compared to the posterior tibial and peroneal arteries may be a focal occlusion of the DP
No embolic source found on CTA and echo
Patient is for amputation today-05/18/2020
# Diabetes with peripheral neuropathy hemoglobin A1c-5.8
patient states she was originally diagnosed with diabetes 19-20 years ago, poorly controlled for a long time as she said she was in denial . Initially required insulin but subsequently lost weight and is now managed with oral medications alone.
On Jardiance 25 mg, metformin 1000 mg twice daily, Mounjaro 7.5 mg on Mondays as outpatient. ( Didnt get on 05/16/25)
Hold Jardiance for OR procedures and NPO
# Hyperlipidemia-continue atorvastatin
# CINDY - improved.
# Hypertension-continue metoprolol 50 mg twice daily, losartan 100 mg daily
# Anxiety and depression-continue Wellbutrin
# Obesity with a BMI of 35-on Mounjaro. History of gastric sleeve procedure
# DVT prophylaxis-continue Lovenox
# Full code
D/W RN
Discussed with podiatry
Discussed with mom at bedside
Part of this note was created using voice recognition system. Occasional wrong word or��sound alike� substitutions may have inadvertently occurred due to the inherent limitations of voice recognition software. If noted kindly bring it to my
attention for correction.
Anticipated Discharge: Within 24 hours
Subjective/Interval History
-
Date of Service: May 18, 2025
Objective Data
-
Vital Signs:
Vital Signs
Temp Pulse Resp BP Pulse Ox
98.2 F 78 18 138/81 98
05/18/25 12:09 05/18/25 12:09 05/18/25 12:09 05/18/25 12:09 05/18/25 12:09
I&O
0705/18/25 05/19/25
06:59 06:59 06:59
Intake Total 840 / 840 680 / 680
Balance 840 / 840 680 / 680
[2025-05-18] MEDS: NSS 1000 IV (14:16)
--- NOTE | 2025-05-18 15:27 | W.PN.ID1 ---
Date of Service
Date of Service: May 18, 2025
Today's Communication
Continue antibiotics.
Assessment / Plan
Left foot cellulitis
Left fifth toe osteomyelitis
DM type II x 20 years
Diabetic neuropathy
Recommendations:
Left fifth toe drainage with growth of Staph aureus (MSSA)
Continue with cefazolin.
Await tentative fifth toe amputation today.
����������������������������������������������������������
Chief Complaint
-: Cellulitis and Other (Left fifth toe osteomyelitis)
Subjective / Review of Systems
Review of Systems: No Fever and No Chills
Vital Signs / Physical Exam
Vital Signs
Vital Signs
Temp Pulse Resp BP Pulse Ox
98.2 F 78 18 138/81 98
05/18/25 12:09 05/18/25 12:09 05/18/25 12:09 05/18/25 12:09 05/18/25 12:09
Physical Exam
Constitutional: No Acute Distress, Comfortable and Non-toxic
Eyes: No Conjunctival Hemorrhage and Sclera Anicteric
Pulmonary: Non Labored
Gastrointestinal: Soft, Non Tender and Non Distended
Wound: Other (Left fifth toe with dressing in place. No strikethrough at this time.)
Neurological: Awake and Alert
Psychological: Calm
Objective Data
Lab Data
Lab Results
05/15/25 06:43
05/17/25 06:59
ESR 73 mm/hour (0-20) H 05/12/25 05:18
Estimated Creat Clear 83 ml/min 05/17/25 06:59
Lactic Acid 0.7 mmol/L (0.7-2.0) 05/11/25 21:01
Total Bilirubin 0.9 mg/dl (0.2-1.3) 05/11/25 15:13
AST 17 U/L (14-36) 05/11/25 15:13
ALT 15 U/L (0-35) 05/11/25 15:13
Alkaline Phosphatase 60 U/L (38-126) 05/11/25 15:13
C-Reactive Protein 44.10 mg/L (0.0-10.00) H 05/12/25 05:18
Most recent labs reviewed.
Micro Results:
05/14/25 14:57 Wound Culture - Final
Foot - Left S aureus-Methicillin Sensitive
Gram Stain - Final
05/11/25 21:01 Blood Culture - Final
Blood/Venous No Growth - Final Report
05/11/25 21:01 Blood Culture - Final
Blood/Venous No Growth - Final Report
05/14/25 11:02 MRSA Screen - Final
Nose No Methicillin Resistant Staphylococcus aureus isolated.
Imaging:
05/13/2025 MRI left lower extremity: there is a large amount of enhancing bone marrow signal abnormality throughout the proximal phalanx of the fifth toe. There is moderate patchy bone marrow signal abnormality in the head of the fifth metatarsal
with mild collapse of the distal articular surface. Also noted is osteonecrosis of the second metatarsal head.
05/08/2025 Lower extremity SVETLANA: right leg ABIs within normal limits. Left leg ABIs unobtainable secondary to poor vessel compressibility. TBI within normal limits. Multifocal flow within the common femoral through popliteal arteries. Multiphasic
pedal flow. Digital PPG waveforms appear dampened within the fifth toe.
[2025-05-18 17:47] LABS: Glucose - Point of Care 82 mg/dl (70-99)
--- NOTE | 2025-05-18 19:37 | W.PN.UPDATE ---
Update Note
Progress Note Update
Patient to OR tonight for amputation left 5th toe and metatarsal head. Patient tolerated procedure and anesthesia without complication. Primary closure achieved with packing at the distal end of the wound only. All necrotic soft tissue and bone
removed and surgical cure achieved. Dressing to be kept clean and dry until tomorrow and patient may weight bear in surgical shoe only. Will remove packing tomorrow.
[2025-05-18 19:47] LABS: Glucose - Point of Care 85 mg/dl (70-99)
[2025-05-18 21:29] LABS: Glucose - Point of Care 94 mg/dl (70-99)
[2025-05-19 03:37] VITALS: BP 128/84
[2025-05-19] MEDS: ANCEF 10 IV ×2 (03:57→12:56)
[2025-05-19] MEDS: NSS 1000 IV (04:26)
[2025-05-19 07:36] VITALS: BP 127/74
[2025-05-19 08:02] LABS: Hematocrit 36.7 % (37.0-47.0); Hemoglobin 12.2 g/dL (12.0-16.0); Mean Corp Hgb Conc. 33.2 g/dL (33.0-37.0); Mean Corpuscular Volume 83.4 fL (81.0-99.0); Platelet Count 287 10^3/uL (130-400); Red Cell Dist. Width 12.9 % (11.5-14.5)
[2025-05-19 08:27] LABS: Blood Urea Nitrogen 16 mg/dl (7-17); Calcium 8.2 mg/dl (8.4-10.2); Carbon Dioxide 22 mmol/L (22-30); Chloride 111 mmol/L (98-107); Estimated Creatinine Clearance 93 ml/min; Glucose 89 mg/dl (70-99); Sodium 139 mmol/L (135-145); eGFR > 60.00
[2025-05-19 08:28] LABS: Glucose - Point of Care 95 mg/dl (70-99)
[2025-05-19 08:33] LABS: Potassium 4.5 mmol/L (3.5-5.1)
[2025-05-19] MEDS: GLUCOPHAGE 1000 MG PO (08:44)
[2025-05-19] MEDS: COZAAR 100 MG PO (08:44)
[2025-05-19] MEDS: TOPROL XL 50 MG PO (08:44)
[2025-05-19] MEDS: WELLBUTRIN XL (24 hour extended release) 150 MG PO (08:44)
[2025-05-19] MEDS: THERAGRAN 1 TABLET PO (08:44)
[2025-05-19] MEDS: VITAMIN C 1000 MG PO (08:44)
[2025-05-19] MEDS: LIPITOR 40 MG PO (08:46)
[2025-05-19] MEDS: FARXIGA 10 MG PO (08:55)
[2025-05-19 11:57] LABS: Glucose - Point of Care 95 mg/dl (70-99)
--- NOTE | 2025-05-19 12:52 | W.PN.POD ---
Today's Communication
Today's Communication
Stable for discharge from surgical standpoint.
Assessment / Plan
-
Assessment/Plan
-One day status post left 5th toe and metatarsal head cellulitis
Distal packing removed and remaining incision closed.
Surgical cure achieved
Recommend discharge with oral antibiotic therapy as per ID, ambulation with surgical shoe. Dressing to be left unchanged and will follow up on Friday in my office
Importance of strict blood glucose control for wound healing discussed with patient
-Left 5th toe wound with cellulitis
-Began as a blister which patient cared for herself until she noted redness and swelling.
-Radiographs unremarkable
-MRI shows bone marrow abnormality throughout the 5th proximal phalanx with patchy bone marrow signal abnormality in the head of the 5th metatarsal.
-MRI also noted Osteonecrosis noted 2nd metatarsal head with bone marrow edema at the naviculocuneiform joint and diffuse edema throughout the dorsal subcutaneous fat. These findings may be attributed to trauma and/or diabetic arthropathy and are
not infectious in nature.
-PAD
-Arterial ultrasound significant as Left SVETLANA unobtainable due to poor vessel compressibility. Addendum by Dr. Gauthier noted suspicion of tibial artery and small vessel disease. Angiogram shows flow to the 5th toe from the posterior tibial artery
and plantar branches
-Diabetes with peripheral neuropathy
-Previously poorly controlled but now on oral medication
- Anxiety and depression
Subjective
Objective
Temp Pulse Resp BP Pulse Ox
98.2 F 74 18 127/74 99
05/19/25 07:36 05/19/25 08:44 05/19/25 07:36 05/19/25 08:44 05/19/25 09:00
05/19/25 06:49
05/19/25 06:49
Vital Signs and Lab results were reviewed.
Physical Exam
Physical Exam
Dressing clean, dry and in tact. Removed to reveal sutures also in tact and no dehiscence. No edema or erythema noted. Packing removed and granulation tissue present with no necrosis
--- NOTE | 2025-05-19 14:47 | W.PN.HOSP.TC ---
Addendum entered and electronically signed by Jaxson Eastman MD 05/19/25 15:37:
1 more week of Keflex per D//W ID
Addendum entered and electronically signed by Jaxson Eastman MD 05/19/25 15:04:
CX MSSA
Original Note:
Today's Communication/Plan
-
Discharge
Will D/W ID also
Assessment / Plan
Assessment / Plan
39-year-old with left toe cellulitis.'Wound originally started 2 weeks ago as a blister on the left fifth toe that she attributes to poorly fitting slippers that she wore while on vacation. Also did some hiking. The blister improved and then
subsequently worsened 4 days ago with findings of left leg cellulitis. Saw her primary care physician and started on oral cephalexin 3 days ago, along with topical mupirocin. Had purulent drainage from the left fifth toe 2 days ago and went to the
emergency room at [facility]. Administered 1 dose of IV antibiotics and discharged.She came into our emergency room 05/11 evening for discoloration of the left fifth toe. She denies any pain, attributed to her longstanding
neuropathy.
No signs or symptoms of sepsis.'
MRI 05/13/2025-large amount of enhancing bone marrow signal abnormality throughout the proximal phalanx of the fifth toe moderate patchy bone marrow signal abnormality in the head of the fifth metatarsal and mild collapse of the distal articular
surface. Diagnostic possibilities acute osteonecrosis and bone infarction, due to osteomyelitis.
Osteonecrosis of the second metatarsal head and acute subchondral insufficiency fracture of the right diagnosis
Bone marrow edema adjacent to the navicular cuneiform joint suggesting arthrosis
Moderate diffuse edema throughout the dorsal subcutaneous fat
SVETLANA right 1.27 TBI 1.21
SVETLANA left-SVETLANA unobtainable. TBI 0.92 digital waveforms appear dampened within the fifth toe
CTA-minimal calcification of the distal abdominal aorta. No evidence of thoracic or abdominal aortic aneurysm. No evidence of focal embolism. Atelectasis or linear scar along. Cholelithiasis without any evidence of cholecystitis uterine device
is present in the uterus appropriately positioned. Mild splenomegaly
Echo normal LV size wall thickness and systolic function. EF 65 to 70%. Normal diastolic function. Normal RV size and function.
CVS: S1-S2 normal
Chest: CTA B/L
Abdomen: Soft, NT / Bowel sounds present
# Left fifth toe cellulitis with cyanotic changes
05/17/2025 arteriogram-right lower extremity artery catheterization-no stenosis anterior tibial artery patent with sluggish flow compared to the posterior tibial and peroneal arteries may be a focal occlusion of the DP
No embolic source found on CTA and echo
S/P Left 5 th toe amputation today-05/18/2020
' Primary closure achieved with packing at the distal end of the wound only. All necrotic soft tissue and bone removed and surgical cure achieved. Patient may weight bear in surgical shoe only '
# Diabetes with peripheral neuropathy hemoglobin A1c-5.8
patient states she was originally diagnosed with diabetes 19-20 years ago, poorly controlled for a long time as she said she was in denial . Initially required insulin but subsequently lost weight and is now managed with oral medications alone.
On Jardiance 25 mg, metformin 1000 mg twice daily, Mounjaro 7.5 mg on Mondays as outpatient. ( Didn't get on 05/16/25)
Restarted Jardiance
# Hyperlipidemia-continue atorvastatin
# CINDY - improved.
# Hypertension-continue metoprolol 50 mg twice daily, losartan 100 mg daily
# Anxiety and depression-continue Wellbutrin
# Obesity with a BMI of 35-on Mounjaro. History of gastric sleeve procedure
# DVT prophylaxis-continue Lovenox
# Full code
D/W RN
Discussed with podiatry
Part of this note was created using voice recognition system. Occasional wrong word or��sound alike� substitutions may have inadvertently occurred due to the inherent limitations of voice recognition software. If noted kindly bring it to my
attention for correction.
Anticipated Discharge: Today
Subjective/Interval History
-
Date of Service: May 19, 2025
Objective Data
-
Labs:
Laboratory Results
05/19/25
06:49
WBC 8.3
Hgb 12.2
Hct 36.7 L
Plt Count 287
Sodium 139
Potassium 4.5
Chloride 111 H
Carbon Dioxide 22
BUN 16
Creatinine 0.9
Glucose 89
Calcium 8.2 L
Vital Signs:
Vital Signs
Temp Pulse Resp BP Pulse Ox
98.2 F 74 18 127/74 99
05/19/25 07:36 05/19/25 08:44 05/19/25 07:36 05/19/25 08:44 05/19/25 09:00
I&O
05/18/25 05/19/25 05/20/25
06:59 06:59 06:59
Intake Total 680 / 680 1130 / 1130
Balance 680 / 680 1130 / 1130
[2025-05-19 15:19] VITALS: BP 140/81
--- NOTE | 2025-05-19 15:36 | W.DS.TRANS ---
Addendum entered and electronically signed by Jaxson Eastman MD 05/19/25 15:47:
Dictation- [id number]
Original Note:
DC Summary - [facility]
-
Discharge Instructions:
Discharge Diagnosis/Procedures Osteomyelitis 5 th toe- amputation left 5th toe
and metatarsal head.
Diabetes
Hyperlipidemia
Hypertension
Anxiety depression
Gallstones.
Diet Diabetic, Carb Controlled
Activity As tolerated
Additional Activity May weight bear in surgical shoe only.
Wound Care dry dressing changed daily with application of
mupirocin and ambulate in surgical shoe
dispensed
Instructions:
Stand-Alone Forms:
Changes to Home Medications: Yes
Discharge Medications:
DC Medications w/original date entered in [employer]
ascorbic acid (vitamin C) 1,000 mg tablet (Vitamin C) 1,000 mg PO DAILY Supplement 05/11/25
atorvastatin 40 mg tablet 40 mg PO DAILY High Cholesterol 05/11/25
bupropion HCl 150 mg 24 hr tablet, extended release 150 mg PO DAILY mental health 05/11/25
empagliflozin 25 mg tablet (Jardiance) 25 mg PO DAILY Diabetes 05/11/25
losartan 100 mg tablet 100 mg PO DAILY Blood Pressure 05/11/25
metformin 1,000 mg tablet 1,000 mg PO BID Diabetes 05/11/25
metoprolol succinate 50 mg tablet,extended release 24 hr 50 mg PO BID heart rate 05/11/25
esorxzbs-gnkyjyef-phgw 45 mg-folic acid 800 mcg-vit K 120 mcg capsule (Bariatric Multivitamins) 1 cap PO DAILY Supplement 05/11/25
mupirocin 2 % topical ointment 1 applic topical BID apply to L pinky toe 05/11/25
phenolphthalein, yellow 90 mg chewable tablet 90 mg PO DAILYPRN PRN constipation 05/11/25
tirzepatide 7.5 mg/0.5 mL subcutaneous pen injector (Mounjaro) 7.5 mg SC MO endocrine issue 05/11/25
cephalexin 500 mg capsule 500 mg PO QID Infection #28 caps 05/19/25
Home Medication Changes
new
Keflex
Pending Results: Yes (path)
--- NOTE | 2025-05-19 15:46 | W.DS.TRANS ---
DC Summary - [employer]
-
Discharge Instructions:
Discharge Diagnosis/Procedures Osteomyelitis 5 th toe- amputation left 5th toe
and metatarsal head.
Diabetes
Hyperlipidemia
Hypertension
Anxiety depression
Gallstones.
Diet Diabetic, Carb Controlled
Activity As tolerated
Additional Activity May weight bear in surgical shoe only.
Wound Care dry dressing changed daily with application of
mupirocin and ambulate in surgical shoe
dispensed
Instructions:
Stand-Alone Forms:
Changes to Home Medications: No
Discharge Medications:
DC Medications w/original date entered in [employer]
ascorbic acid (vitamin C) 1,000 mg tablet (Vitamin C) 1,000 mg PO DAILY Supplement 05/11/25
atorvastatin 40 mg tablet 40 mg PO DAILY High Cholesterol 05/11/25
bupropion HCl 150 mg 24 hr tablet, extended release 150 mg PO DAILY mental health 05/11/25
empagliflozin 25 mg tablet (Jardiance) 25 mg PO DAILY Diabetes 05/11/25
losartan 100 mg tablet 100 mg PO DAILY Blood Pressure 05/11/25
metformin 1,000 mg tablet 1,000 mg PO BID Diabetes 05/11/25
metoprolol succinate 50 mg tablet,extended release 24 hr 50 mg PO BID heart rate 05/11/25
jibxfuyl-iixzecgt-hxwl 45 mg-folic acid 800 mcg-vit K 120 mcg capsule (Bariatric Multivitamins) 1 cap PO DAILY Supplement 05/11/25
mupirocin 2 % topical ointment 1 applic topical BID apply to L pinky toe 05/11/25
phenolphthalein, yellow 90 mg chewable tablet 90 mg PO DAILYPRN PRN constipation 05/11/25
tirzepatide 7.5 mg/0.5 mL subcutaneous pen injector (Mounjaro) 7.5 mg SC MO endocrine issue 05/11/25
cephalexin 500 mg capsule 500 mg PO QID Infection #28 caps 05/19/25
Home Medication Changes
Pending Results: Yes (path)
--- NOTE | 2025-05-19 15:53 | CM ---
Home no needs
Plan; Home no needs.
== END 2025-05-19 17:03 | disposition home or self-care (01) | DRG 240 ==
LOC: 4 EAST ACU 07:28
PROVIDERS: Emergency Medicine; Nurse Practitioner; Nurse Practitioner Family; ADMITTING PHYSICIAN Student in an Organized Health Care Education/Training Program; ATTENDING PHYSICIAN Hospitalist; CONSULT PHYSICIAN Internal Medicine Infectious Disease; CONSULT PHYSICIAN Podiatrist Foot & Ankle Surgery; EMERGENCY PHYSICIAN Student in an Organized Health Care Education/Training Program; FAMILY PHYSICIAN Family Medicine; OTHER PHYSICIAN Surgery Vascular Surgery
PROC: B41D1ZZ Fluoroscopy of Aorta and Bilateral Lower Extremity Arteries using Low Osmolar Contrast (ICD-10-PCS; 2025-05-17)
PROC: 0Y6N0ZF Detachment at Left Foot, Partial 5th Ray, Open Approach (ICD-10-PCS; 2025-05-18)
DX: E11.52 Type 2 diabetes mellitus with diabetic peripheral angiopathy with gangrene (principal); L03.116 Cellulitis of left lower limb; M86.172 Other acute osteomyelitis, left ankle and foot; I10 Essential (primary) hypertension; F32.A Depression, unspecified; F41.9 Anxiety disorder, unspecified; E78.00 Pure hypercholesterolemia, unspecified; E11.42 Type 2 diabetes mellitus with diabetic polyneuropathy; L03.032 Cellulitis of left toe; E11.69 Type 2 diabetes mellitus with other specified complication; K80.20 Calculus of gallbladder without cholecystitis without obstruction; B95.61 Methicillin susceptible Staphylococcus aureus infection as the cause of diseases classified elsewhere; E66.09 Other obesity due to excess calories; Z68.35 Body mass index [BMI] 35.0-35.9, adult; Z79.84 Long term (current) use of oral hypoglycemic drugs; Z79.899 Other long term (current) drug therapy; Z98.84 Bariatric surgery status
CPT/HCPCS: 36246; 71275; 73620; 73660; 73720; 74174; 75625; 75710; 80048; 80053; 82607; 82962; 83036; 83605; 84703; 85025; 85027; 85652; 86140; 87040; 87070; 87147; 87186; 87205; 88305; 88311; 93306; 93922; 93925; A9575; C1769; C1894; Q9950; Q9967

== ENCOUNTER → 2025-08-19 16:20 | Outpatient (REF) | payer BC, SELFPAY | LOC: MRI 3T 16:20 | PROVIDERS: ATTENDING PHYSICIAN Surgery; FAMILY PHYSICIAN Family Medicine | DX: N63.21 Unspecified lump in the left breast, upper outer quadrant (principal) | CPT/HCPCS: 77049; A9585 ==

== ENCOUNTER → 2025-09-02 15:04 | Outpatient (REF) | payer BC, SELFPAY | LOC: WDC 15:04 | PROVIDERS: ATTENDING PHYSICIAN Surgery; FAMILY PHYSICIAN Registered Nurse | DX: R92.8 Other abnormal and inconclusive findings on diagnostic imaging of breast (principal); N63.0 Unspecified lump in unspecified breast | CPT/HCPCS: 76642 ==